=== PATIENT | male | born 1940 | race Caucasian/White ===

== ENCOUNTER → 2018-01-16 | Outpatient (CLI) | payer MEDICARE ==
[~2018-01-16] MED LIST: ADVAIR; ADVAIR 500-501 EACH INH; ADVAIR HFA115 MCG/21 INH; ALBUTEROL; ATROVENT15 ML; AZITHROMYCIN 2250 MG PO; CIPRO500 M1 PO; CIPRO500 MG PO; CIPROFLOXACIN500 M1 PO; CLARITIN10 MG PO; COMBIVENT INH; COMBIVENT INHALER; DOXYCYCLINE 10100 M1; DOXYCYCLINE 10100 MG PO; DOXYCYCLINE HY100 M3; DOXYCYCLINE HY100 MG; DOXYCYCLINE HY100 MG PO; DUONEB 2.5-0.5 M3 ML INH; FLAGYL500 MG PO; FLONASE 0.05%50 MCG NASAL; HYTRIN 5 M5 MG/1 CAP; LEVAQUIN 500 M500 M2 PO; LEVAQUIN 500 M500 MG PO; MEDROLDOSEPACK PO; MIRALAX17 GM PO; PREDNISONE 10 M10 MG PO; PREDNISONE 20 M20 MG PO; PREDNISONE10 MG PO; PREDNISONE50 MG; PREDNISONE50 MG PO; PROBIOTIC1 EAC2 PO; RAPAFLO4 MG; SENOKOT-S1 TA1 PO; STIOLTO RESPIMAT4 GM; VANTIN PO; VIBRAMYCIN 100100 M2 PO; VICODIN ES TAB1 EACH; ZPAK PO
== END ==
LOC: M.RAD 08:46
DX: J44.9 Chronic obstructive pulmonary disease, unspecified (principal); J70.3 Chronic drug-induced interstitial lung disorders; J84.10 Pulmonary fibrosis, unspecified; J98.4 Other disorders of lung

== ENCOUNTER 2018-05-04 21:01 | Emergency (ER) | payer MEDICARE ==
[~2018-05-04] VITALS: Ht 172.7 cm; Wt 58.1 kg
[~2018-05-04 21:01] MED LIST changes: -CIPRO500 M1 PO; -CLARITIN10 MG PO; -STIOLTO RESPIMAT4 GM; -ZPAK PO
[2018-05-04] MEDS ORDERED: STIOLTO RESPIMAT4 GM (21:22)
[2018-05-04 21:41] LABS: URINE BILIRUBIN NEGATIVE (Negative); URINE BLOOD NEGATIVE (Negative); URINE CLARITY CLEAR; URINE COLOR YELLOW; URINE GLUCOSE-RANDOM NEGATIVE (Negative); URINE KETONES NEGATIVE (Negative); URINE LEUKOCYTES-REFLEX NEGATIVE (Negative); URINE NITRITE-REFLEX NEGATIVE (Negative); URINE PROTEIN NEGATIVE (Negative); URINE UROBILINOGEN 0.2 E.U./dl (0.2-1.0)
[2018-05-04 21:48] LABS: ABSOLUTE BASOPHILS 0.1 thou/uL (0.0-0.2); ABSOLUTE EOSINOPHILS 0.3 thou/uL (0.0-0.7); ABSOLUTE LYMPHOCYTES 0.8 thou/uL (0.8-5.3); ABSOLUTE MONOCYTES 0.6 thou/uL (0.0-1.2); ABSOLUTE NEUTROPHILS 5.6 thou/uL (1.6-8.1); BASOPHILS 0.8 %; EOSINOPHILS 4.3 %; HEMATOCRIT 37.1 % (42.0-52.0); HEMOGLOBIN 12.4 gm/dL (14.0-18.0); LYMPHOCYTES 11.4 %; MCH 28.9 pg (26.0-34.0); MCHC 33.3 g/dL (28.0-37.0); MCV 86.8 fL (80.0-100.0); MONOCYTES 8.2 %; MPV 7.6 fl. (7.2-11.1); NUCLEATED RBCS 0 /100WBC; PLATELET COUNT* 203 thou/uL (150-400); POLYS 75.3 %; RBC 4.28 mil/uL (4.50-6.00); RDW-CV 14.5 % (10.5-14.5); WBC 7.4 thou/uL (4.0-11.0)
[2018-05-04 21:55] LABS: CALCIUM 7.8 mg/dL (8.5-10.1); CREATININE 1.2 mg/dL (0.6-1.3); POTASSIUM 3.3 mmol/L (3.5-5.1)
[2018-05-04 22:00] LABS: TOTAL BILIRUBIN 0.8 mg/dL (<0.1-1.0)
[2018-05-04] MEDS ORDERED: LEVAQUIN 500 M500 MG PO (22:32)
[2018-05-04 22:45] VITALS: BP 110/60
== END 2018-05-04 22:49 | disposition home or self-care (01) ==
LOC: M.ERS 21:01
PROVIDERS: Personal Emergency Response Attendant
DX: J18.9 Pneumonia, unspecified organism (principal); J44.9 Chronic obstructive pulmonary disease, unspecified; Z85.46 Personal history of malignant neoplasm of prostate; Z90.49 Acquired absence of other specified parts of digestive tract; Z87.891 Personal history of nicotine dependence

== ENCOUNTER 2018-05-25 10:48 | Emergency (ER) | payer MEDICARE ==
[~2018-05-25] VITALS: Ht 175.3 cm; Wt 59.0 kg
[~2018-05-25 10:48] MED LIST changes: +STIOLTO RESPIMAT4 GM
[2018-05-25 11:44] LABS: BE 0.9 mmol/L (-2 to +3); HCO3 25.5 mmol/L (22.0-26.0); PCO2 40.9 mmHg (35.0-45.0); PO2 76.7 mmHg (75.0-100.0); pH 7.413 (7.340-7.450)
[2018-05-25 11:45] LABS: HEMATOCRIT 40.4 % (42.0-52.0); HEMOGLOBIN 13.3 gm/dL (14.0-18.0); MCH 28.8 pg (26.0-34.0); MCHC 32.9 g/dL (28.0-37.0); MCV 87.5 fL (80.0-100.0); MPV 7.5 fl. (7.2-11.1); NUCLEATED RBCS 0 /100WBC; PLATELET COUNT* 331 thou/uL (150-400); RBC 4.61 mil/uL (4.50-6.00); RDW-CV 14.6 % (10.5-14.5); WBC 6.6 thou/uL (4.0-11.0)
[2018-05-25 11:48] LABS: ANION GAP 3 mmol/L (7-16); BUN 17 mg/dL (7-18); CALCIUM 8.9 mg/dL (8.5-10.1); CHLORIDE 102 mmol/L (98-107); CO2 32 mmol/L (21-32); CREATININE 1.1 mg/dL (0.6-1.3); GLUCOSE 91 mg/dL (70-99); POTASSIUM 4.2 mmol/L (3.5-5.1); SODIUM 137 mmol/L (136-145)
[2018-05-25 11:59] LABS: ALBUMIN 3.3 g/dL (3.4-5.0); ALKALINE PHOSPHATASE 60 U/L (46-116); MAGNESIUM 1.9 mg/dL (1.8-2.4); NT-PRO BRAIN NAT PEPTIDE 661 pg/mL (<300); SGOT 30 U/L (15-37); SGPT 24 U/L (30-65); TOTAL BILIRUBIN 0.6 mg/dL (<0.1-1.0); TROPONIN-I LEVEL <0.06 ng/mL (<0.06)
[2018-05-25 12:13] LABS: ABSOLUTE EOSINOPHILS 0.1 thou/uL (0.0-0.7); ABSOLUTE LYMPHOCYTES 0.6 thou/uL (0.8-5.3); ABSOLUTE MONOCYTES 0.1 thou/uL (0.0-1.2); ABSOLUTE NEUTROPHILS 5.8 thou/uL (1.6-8.1); PLATELET ESTIMATE ADEQUATE
[2018-05-25 12:18] LABS: URINE BILIRUBIN NEGATIVE (Negative); URINE BLOOD NEGATIVE (Negative); URINE CLARITY CLEAR; URINE COLOR YELLOW; URINE GLUCOSE-RANDOM NEGATIVE (Negative); URINE KETONES NEGATIVE (Negative); URINE LEUKOCYTES-REFLEX NEGATIVE (Negative); URINE NITRITE-REFLEX NEGATIVE (Negative); URINE PROTEIN NEGATIVE (Negative); URINE SPECIFIC GRAVITY 1.015 (1.005-1.030); URINE UROBILINOGEN 0.2 E.U./dl (0.2-1.0)
[2018-05-25] MEDS ORDERED: ZPAK PO (12:37)
[2018-05-25 13:00] VITALS: BP 128/77
--- NOTE | 2018-05-25 16:30 | EKG ---
[place] [address] ELECTROCARDIOGRAM REPORT Name: RBUCE SANDERS [id number] Admission: 05/25/18 Attend Phys: Discharge: 05/25/18 Date of : 44 Report #: [id number] THIS REPORT FOR: //name// [facility] ED Test Date: 2018-05-25 Test Time: 11:07:33 Pat Name: BRUCE SANDERS Department: Room: Gender: M Piping Blocker: Marilu COOK : 1940 Requested By: Brigette Negro Order Number: [id number] MD: David Pacheco Measurements Intervals [place] Rate: 53 P: 79 ME: 179 QRS: -63 QRSD: 124 T: 41 QT: 479 QTc: 450 Interpretive Statements Sinus rhythm RBBB and LAFB Compared to ECG 05/01/2017 20:08:34 Left anterior fascicular block now present Atrial premature complex(es) no longer present Myocardial infarct finding no longer present Electronically Signed On 05-25-2018 16:30:31 CDT by David Pacheco [email or web address] <ELECTRONICALLY SIGNED> By: David Pacheco MD, [facility] 05/25/18 1630 1107 1107 David Pacheco MD, [facility] /EPI
== END 2018-05-25 13:01 | disposition home or self-care (01) ==
LOC: M.ERS 10:48
PROVIDERS: Personal Emergency Response Attendant
DX: J44.1 Chronic obstructive pulmonary disease with (acute) exacerbation (principal); J40 Bronchitis, not specified as acute or chronic; Z79.899 Other long term (current) drug therapy; Z85.46 Personal history of malignant neoplasm of prostate

== ENCOUNTER → 2018-06-01 | Outpatient (CLI) | payer MEDICARE ==
[~2018-06-01] MED LIST changes: +CIPRO500 M1 PO; +CLARITIN10 MG PO; +ZPAK PO
== END ==
LOC: M.RAD 08:26
DX: M47.816 Spondylosis without myelopathy or radiculopathy, lumbar region (principal); M47.812 Spondylosis without myelopathy or radiculopathy, cervical region; M47.814 Spondylosis without myelopathy or radiculopathy, thoracic region; M48.04 Spinal stenosis, thoracic region; M48.061 Spinal stenosis, lumbar region without neurogenic claudication; M48.02 Spinal stenosis, cervical region; J44.9 Chronic obstructive pulmonary disease, unspecified; V89.2XXA Person injured in unspecified motor-vehicle accident, traffic, initial encounter

== ENCOUNTER 2018-07-27 05:32 | Emergency (ER) | payer MEDICARE ==
[~2018-07-27] VITALS: Ht 172.7 cm; Wt 59.0 kg
[~2018-07-27 05:32] MED LIST changes: -CIPRO500 M1 PO; -CLARITIN10 MG PO
[2018-07-27] MEDS ORDERED: PREDNISONE 20 M20 MG PO (05:56)
[2018-07-27] MEDS ORDERED: DOXYCYCLINE 10100 MG PO (05:58)
[2018-07-27 06:31] LABS: BE 0.3 mmol/L (-2 to +3); HCO3 25.1 mmol/L (22.0-26.0); PCO2 41.2 mmHg (35.0-45.0); PO2 73.9 mmHg (75.0-100.0); pH 7.403 (7.340-7.450)
[2018-07-27 06:34] LABS: HEMOGLOBIN 12.9 gm/dL (14.0-18.0)
[2018-07-27 06:36] LABS: ABSOLUTE EOSINOPHILS 0.3 thou/uL (0.0-0.7); ABSOLUTE MONOCYTES 0.4 thou/uL (0.0-1.2); ABSOLUTE NEUTROPHILS 3.7 thou/uL (1.6-8.1); BASOPHILS 0.6 %; EOSINOPHILS 5.9 %; HEMATOCRIT 38.9 % (42.0-52.0); LYMPHOCYTES 18.3 %; MCH 28.8 pg (26.0-34.0); MCHC 33.1 g/dL (28.0-37.0); MONOCYTES 6.8 %; MPV 7.7 fl. (7.2-11.1); NUCLEATED RBCS 0 /100WBC; PLATELET COUNT* 218 thou/uL (150-400); POLYS 68.4 %; RBC 4.47 mil/uL (4.50-6.00); RDW-CV 15.3 % (10.5-14.5); WBC 5.4 thou/uL (4.0-11.0)
[2018-07-27 06:46] LABS: ANION GAP 7 mmol/L (7-16); BUN 18 mg/dL (7-18); CALCIUM 9.1 mg/dL (8.5-10.1); CHLORIDE 104 mmol/L (98-107); CO2 29 mmol/L (21-32); GLUCOSE 84 mg/dL (70-99); SODIUM 140 mmol/L (136-145)
[2018-07-27 06:58] LABS: ALBUMIN 3.3 g/dL (3.4-5.0); ALKALINE PHOSPHATASE 78 U/L (46-116); SGOT 39 U/L (15-37); SGPT 24 U/L (30-65); TOTAL BILIRUBIN 0.7 mg/dL (<0.1-1.0); TOTAL PROTEIN 6.7 g/dL (6.4-8.2); TROPONIN-I LEVEL <0.06 ng/mL (<0.06)
[2018-07-27 06:59] LABS: POTASSIUM 4.4 mmol/L (3.5-5.1)
[2018-07-27] MEDS ORDERED: MEDROLDOSEPACK PO (08:02)
[2018-07-27] MEDS ORDERED: CIPRO500 M1 PO (08:02)
[2018-07-27 08:08] VITALS: BP 146/77
--- NOTE | 2018-07-27 13:52 | EKG ---
[place] [address] ELECTROCARDIOGRAM REPORT Name: BRUCE SANDERS [id number] Admission: 07/27/18 Attend Phys: Discharge: 07/27/18 Date of : 44 Report #: [id number] THIS REPORT FOR: //name// [facility] ED Test Date: 2018-07-27 Test Time: 05:46:24 Pat Name: BRUCE SANDERS Department: Room: Gender: M Specialist Managers: Tayo ORTIZ : 1940 Requested By: Brigette Negro Order Number: [id number] MD: Simone Valente Measurements Intervals [place] Rate: 52 P: 78 [place]: 173 QRS: -81 QRSD: 123 T: 50 QT: 469 QTc: 437 Interpretive Statements Sinus rhythm RBBB and LAFB Compared to ECG 05/25/2018 11:07:33 No significant changes Electronically Signed On 07-27-2018 13:52:33 PEDIATRIC PSYCHOLOGIST by Simone Valente [email or web address] <ELECTRONICALLY SIGNED> By: Simone Valente MD, [facility] 07/27/18 1352 0546 0546 Simone Valente MD, FACC /EPI
== END 2018-07-27 08:09 | disposition home or self-care (01) ==
LOC: M.ERS 05:32
PROVIDERS: Personal Emergency Response Attendant
DX: J44.1 Chronic obstructive pulmonary disease with (acute) exacerbation (principal); Z85.46 Personal history of malignant neoplasm of prostate; Z90.49 Acquired absence of other specified parts of digestive tract; Z87.891 Personal history of nicotine dependence

== ENCOUNTER 2018-08-01 16:13 | Emergency (ER) | payer MEDICARE ==
[~2018-08-01] VITALS: Ht 172.7 cm; Wt 56.7 kg
[~2018-08-01 16:13] MED LIST changes: +CIPRO500 M1 PO
[2018-08-01] MEDS ORDERED: DOXYCYCLINE 10100 MG PO (16:31)
[2018-08-01] MEDS ORDERED: PREDNISONE50 MG PO (16:31)
[2018-08-01] MEDS ORDERED: AZITHROMYCIN 2250 MG PO (16:32)
[2018-08-01] MEDS ORDERED: LEVAQUIN 500 M500 M2 PO (16:32)
[2018-08-01 17:20] LABS: ABSOLUTE EOSINOPHILS 0.2 thou/uL (0.0-0.7); ABSOLUTE LYMPHOCYTES 1.5 thou/uL (0.8-5.3); ABSOLUTE MONOCYTES 0.4 thou/uL (0.0-1.2); ABSOLUTE NEUTROPHILS 4.4 thou/uL (1.6-8.1); BASOPHILS 0.4 %; EOSINOPHILS 2.8 %; HEMATOCRIT 37.8 % (42.0-52.0); HEMOGLOBIN 12.5 gm/dL (14.0-18.0); LYMPHOCYTES 22.4 %; MCH 29.1 pg (26.0-34.0); MCHC 33.2 g/dL (28.0-37.0); MCV 87.6 fL (80.0-100.0); MONOCYTES 6.8 %; MPV 7.3 fl. (7.2-11.1); NUCLEATED RBCS 0 /100WBC; PLATELET COUNT* 239 thou/uL (150-400); POLYS 67.6 %; RBC 4.32 mil/uL (4.50-6.00); RDW-CV 14.9 % (10.5-14.5); WBC 6.5 thou/uL (4.0-11.0)
[2018-08-01 17:41] LABS: ANION GAP 6 mmol/L (7-16); BUN 19 mg/dL (7-18); CALCIUM 8.4 mg/dL (8.5-10.1); CHLORIDE 106 mmol/L (98-107); CO2 31 mmol/L (21-32); CREATININE 1.1 mg/dL (0.6-1.3); GLUCOSE 90 mg/dL (70-99); POTASSIUM 4.1 mmol/L (3.5-5.1); SODIUM 143 mmol/L (136-145)
[2018-08-01 17:45] LABS: ALBUMIN 3.1 g/dL (3.4-5.0); ALKALINE PHOSPHATASE 76 U/L (46-116); NT-PRO BRAIN NAT PEPTIDE 248 pg/mL (<300); SGOT 18 U/L (15-37); SGPT 23 U/L (30-65); TOTAL BILIRUBIN 0.6 mg/dL (<0.1-1.0); TROPONIN-I LEVEL <0.06 ng/mL (<0.06)
[2018-08-01] MEDS ORDERED: CLARITIN10 MG PO (18:09)
[2018-08-01 18:18] VITALS: BP 135/75
--- NOTE | 2018-08-02 11:31 | EKG ---
[place] [address] ELECTROCARDIOGRAM REPORT Name: ARIELNAYELICHARIBRUCE [facility] [id number] Admission: 08/01/18 Attend Phys: Discharge: 08/01/18 Date of : 44 Report #: [id number] THIS REPORT FOR: //name// [facility] ED Test Date: 2018-08-01 Test Time: 16:38:03 Pat Name: BRUCE SANDERS Department: Room: Gender: M Airbrush Painter: Laurel GROSS : 1940 Requested By: Tram Vieira Order Number: [id number] MD: Simone Valente Measurements Intervals [place] Rate: 63 P: 86 [place]: 173 QRS: -47 QRSD: 120 T: 48 QT: 422 QTc: 433 Interpretive Statements Sinus rhythm Consider left atrial enlargement Incomplete RBBB and LAFB Compared to ECG 07/27/2018 05:46:24 rate increased Electronically Signed On 08-02-2018 11:31:02 PASTEURIZING MACHINE OPERATOR by Simone Valente [email or web address] <ELECTRONICALLY SIGNED> By: Simone Valente MD, [facility] 08/02/18 1131 1638 163 Simone Valente MD, [facility] /EPI
== END 2018-08-01 18:19 | disposition home or self-care (01) ==
LOC: M.ERS 16:13
PROVIDERS: Nurse Practitioner Family
DX: J44.1 Chronic obstructive pulmonary disease with (acute) exacerbation (principal); Z85.46 Personal history of malignant neoplasm of prostate; Z90.49 Acquired absence of other specified parts of digestive tract; Z87.891 Personal history of nicotine dependence

== ENCOUNTER 2018-08-26 11:12 | Emergency (ER) | payer MEDICARE ==
[~2018-08-26] VITALS: Ht 172.7 cm; Wt 56.7 kg
[~2018-08-26 11:12] MED LIST changes: +CLARITIN10 MG PO
[2018-08-26 11:44] LABS: MCHC 33.3 g/dL (28.0-37.0); NUCLEATED RBCS 0 /100WBC
[2018-08-26 11:46] LABS: ABSOLUTE EOSINOPHILS 0.1 thou/uL (0.0-0.7); ABSOLUTE LYMPHOCYTES 0.6 thou/uL (0.8-5.3); ABSOLUTE MONOCYTES 0.3 thou/uL (0.0-1.2); ABSOLUTE NEUTROPHILS 3.5 thou/uL (1.6-8.1); BASOPHILS 0.4 %; EOSINOPHILS 3.1 %; HEMATOCRIT 36.7 % (42.0-52.0); HEMOGLOBIN 12.2 gm/dL (14.0-18.0); LYMPHOCYTES 13.6 %; MONOCYTES 5.7 %; MPV 7.5 fl. (7.2-11.1); PLATELET COUNT* 208 thou/uL (150-400); POLYS 77.2 %; RBC 4.22 mil/uL (4.50-6.00); WBC 4.6 thou/uL (4.0-11.0)
[2018-08-26 11:56] LABS: ANION GAP 6 mmol/L (7-16); BUN 14 mg/dL (7-18); CALCIUM 8.8 mg/dL (8.5-10.1); CHLORIDE 104 mmol/L (98-107); CO2 31 mmol/L (21-32); CREATININE 1.1 mg/dL (0.6-1.3); GLUCOSE 129 mg/dL (70-99); POTASSIUM 3.6 mmol/L (3.5-5.1); SODIUM 141 mmol/L (136-145)
[2018-08-26 12:07] LABS: ALBUMIN 3.3 g/dL (3.4-5.0); ALKALINE PHOSPHATASE 80 U/L (46-116); NT-PRO BRAIN NAT PEPTIDE 361 pg/mL (<300); SGOT 22 U/L (15-37); SGPT 22 U/L (30-65); TOTAL BILIRUBIN 0.7 mg/dL (<0.1-1.0); TOTAL PROTEIN 6.4 g/dL (6.4-8.2); TROPONIN-I LEVEL <0.06 ng/mL (<0.06)
[2018-08-26] MEDS ORDERED: PREDNISONE 20 M20 M1 PO (12:50)
[2018-08-26 13:04] VITALS: BP 118/67
--- NOTE | 2018-08-28 10:22 | EKG ---
[place] [address] ELECTROCARDIOGRAM REPORT Name: BRUCE SANDERS [facility] [id number] Admission: 08/26/18 Attend Phys: Discharge: 08/26/18 Date of : 44 Report #: [id number] THIS REPORT FOR: //name// [facility] ED Test Date: 2018-08-26 Test Time: 11:46:15 Pat Name: BRUCE SANDERS Department: Room: Gender: M Blind Eyeletter: Gaurang PARSONS : 1940 Requested By: Jessica Aguilar Order Number: [id number] MD: Simone Valente Measurements Intervals [place] Rate: 68 P: 86 [place]: 181 QRS: -70 QRSD: 124 T: 59 QT: 434 QTc: 462 Interpretive Statements Sinus rhythm RBBB and LAFB Borderline ST elevation, lateral leads Compared to ECG 08/01/2018 16:38:03 no change Electronically Signed On 08-28-2018 10:22:22 FURNITURE UPHOLSTERER APPRENTICE by Simone Valente [email or web address] <ELECTRONICALLY SIGNED> By: Simone Valente MD, [facility] 08/28/18 1022 1146 1146 Simone Valente MD, [facility] /EPI
== END 2018-08-26 13:05 | disposition home or self-care (01) ==
LOC: M.ERS 11:12
PROVIDERS: Nurse Practitioner Family
DX: J44.9 Chronic obstructive pulmonary disease, unspecified (principal); Z87.891 Personal history of nicotine dependence; Z85.46 Personal history of malignant neoplasm of prostate; Z90.49 Acquired absence of other specified parts of digestive tract

== ENCOUNTER 2018-09-04 00:08 | Inpatient (IN) | payer MEDICARE ==
[~2018-09-04] VITALS: Ht 172.7 cm; Wt 55.3 kg
--- NOTE | ~2018-09-04 | CON ---
[facility] [address] [place] [address] CONSULTATION Name: BRUCE SANDERS Room: [address] IN M.R.#: [id number] Admission: 09/04/18 Attend Phys: Gaurang Morgan Discharge: Date of : 44 Report #: [id number] THIS REPORT FOR: //name// CC: Neil Lockett DATE OF SERVICE: 09/04/2018 HISTORY OF PRESENT ILLNESS: The patient is a pleasant 78-year-old gentleman, with past medical history significant for small bowel obstruction, who is presenting with abdominal pain, nausea and vomiting. The patient reports the symptoms began about 2 days ago consisting of mid abdominal pain, nausea and vomiting and inability to pass stool. The patient reports the symptoms are similar to the ones he had before when he had bowel obstruction. The patient reports the pain is located in the mid abdomen. It is cramping in nature and has no particular aggravating or alleviating factors. The pain has improved since the NG tube was placed in the hospital and decompression was made. The patient did not have any bowel movements for the last couple of days, but he just had one this a.m. The patient reports significant improvement in symptoms since his bowel movement. The patient denies having any hematemesis, hematochezia or weight loss. PAST MEDICAL HISTORY: The patient has a past history of COPD and diverticulitis. PAST SURGICAL HISTORY: The patient has history of cholecystectomy and hernia repair. SOCIAL HISTORY: The patient has a 26-sbep-zuos smoking history, but has quit smoking. He reports taking alcohol occasionally about once a month and denies recreational drug use. FAMILY HISTORY: There is no family history of colorectal cancer. PHYSICAL EXAMINATION: VITAL SIGNS: Temperature 36.2, pulse rate 82, respirations 16, blood pressure 148/84, pulse ox 95% on room air. GENERAL: The patient is alert, awake, oriented x 3. HEENT: Pupils are equal, round, reactive to light and accommodation. Mucous membranes are moist. NECK: There is no congestion. LUNGS: Clear to auscultation bilaterally. CARDIOVASCULAR: Rate and rhythm regular, S1, S2 present. ABDOMEN: Soft. There is no tenderness. Bowel sounds appear to be hyperactive. There is no guarding or rigidity. EXTREMITIES: Warm, well perfused. [place] [address] CONSULTATION Name: BRUCE SANDERS Room: [address]#: [id number] Admission: 09/04/18 Attend Phys: Gaurang Morgan Discharge: Date of : 44 Report #: [id number] LABORATORY DATA: Hemoglobin 12.5, hematocrit 37.4, platelet count 252, WBC count 10.8. Sodium 141, potassium 3.6, chloride 102, bicarbonate 32, BUN 22, creatinine 1.1. AST 19, ALT 23, alkaline phosphatase 75. IMAGING: Abdomen and pelvis CT performed on 09/04/2018, moderate amount of retained stool throughout the colon. There is mild swelling of the central mesenteric vascularity; however, this is similar to prior study. All of this may be seen with intermittent volvulus, but no definite evidence of complete bowel obstruction seen at this time. No free air or ascites. Close clinical followup and radiographic followup is recommended. Previous cholecystectomy. ASSESSMENT AND PLAN: This is a pleasant 78-year-old male, with past medical history significant for chronic obstructive pulmonary disease and prior history of bowel obstruction, presenting with symptoms of abdominal pain, nausea, vomiting and lack of passage of stool. The patient appears to have had a bowel obstruction that has spontaneously resolved after initiation of nasogastric decompression. I would recommend placing the patient on clear liquid diet and we will advance diet as tolerated. Call with any questions. By: [id number] Flores MD /nt
[~2018-09-04 00:08] MED LIST changes: +PREDNISONE 20 M20 M1 PO
[2018-09-04 00:09] VITALS: BP 163/77
[2018-09-04 00:34] LABS: HEMATOCRIT 37.4 % (42.0-52.0); HEMOGLOBIN 12.5 gm/dL (14.0-18.0); MCH 29.2 pg (26.0-34.0); MCHC 33.4 g/dL (28.0-37.0); MCV 87.4 fL (80.0-100.0); MPV 7.6 fl. (7.2-11.1); NUCLEATED RBCS 0 /100WBC; PLATELET COUNT* 252 thou/uL (150-400); RBC 4.28 mil/uL (4.50-6.00); RDW-CV 14.2 % (10.5-14.5); WBC 10.8 thou/uL (4.0-11.0)
[2018-09-04 00:54] LABS: ANION GAP 7 mmol/L (7-16); BUN 22 mg/dL (7-18); CALCIUM 8.6 mg/dL (8.5-10.1); CHLORIDE 102 mmol/L (98-107); CO2 32 mmol/L (21-32); CREATININE 1.1 mg/dL (0.6-1.3); GLUCOSE 84 mg/dL (70-99); POTASSIUM 3.6 mmol/L (3.5-5.1); SODIUM 141 mmol/L (136-145)
[2018-09-04 01:01] LABS: ALBUMIN 3.2 g/dL (3.4-5.0); ALKALINE PHOSPHATASE 75 U/L (46-116); LIPASE 90 U/L (73-393); SGOT 19 U/L (15-37); SGPT 23 U/L (30-65); TOTAL BILIRUBIN 0.6 mg/dL (<0.1-1.0); TOTAL PROTEIN 6.3 g/dL (6.4-8.2); TROPONIN-I LEVEL <0.06 ng/mL (<0.06)
[2018-09-04 01:58] LABS: ABSOLUTE LYMPHOCYTES 0.9 thou/uL (0.8-5.3); ABSOLUTE MONOCYTES 0.3 thou/uL (0.0-1.2); ABSOLUTE NEUTROPHILS 9.6 thou/uL (1.6-8.1); ANISOCYTOSIS 1+; PLATELET ESTIMATE ADEQUATE
[2018-09-04 01:59] LABS: POIKILOCYTOSIS 1+; TOXIC GRANULATION 1+
[2018-09-04 02:31] LABS: URINE BILIRUBIN NEGATIVE (Negative); URINE BLOOD NEGATIVE (Negative); URINE CLARITY CLEAR; URINE COLOR YELLOW; URINE GLUCOSE-RANDOM NEGATIVE (Negative); URINE KETONES NEGATIVE (Negative); URINE LEUKOCYTES-REFLEX NEGATIVE (Negative); URINE NITRITE-REFLEX NEGATIVE (Negative); URINE PROTEIN NEGATIVE (Negative); URINE SPECIFIC GRAVITY <= 1.005 (1.005-1.030); URINE UROBILINOGEN 0.2 E.U./dl (0.2-1.0)
[2018-09-04 04:10] VITALS: BP 127/75
[2018-09-04 04:15] VITALS: BP 150/87
--- NOTE | 2018-09-04 05:23 | NUR ---
PATIENT ARRIVED TO ROOM ALERT AND ORIENTED. ORIENTED TO ROOM AND BED CONTROL. DENIES PAIN OR NAUSEA AT THIS TIME. NPO AT THIS TIME. ASSESSMENT CHARTED.
[2018-09-04 09:40] VITALS: BP 148/84
--- NOTE | 2018-09-04 11:10 | EKG ---
[place] [address] ELECTROCARDIOGRAM REPORT Name: BRUCE SANDERS Room: [address] ADM IN M.R.#: [id number] Admission: 09/04/18 Attend Phys: Gaurang Morgan Discharge: Date of : 44 Report #: [id number] THIS REPORT FOR: //name// [facility] ED Test Date: 2018-09-04 Test Time: 00:41:51 Pat Name: BRUCE SANDERS Department: Room: [facility] Gender: M Senior Ruby Developer: MAKAYLA : 1940 Requested By: Brigette Negro Order Number: [id number] MD: Herberth Mac Measurements Intervals [place] Rate: 57 P: 88 MT: 170 QRS: -55 QRSD: 123 T: 54 QT: 446 QTc: 435 Interpretive Statements Sinus rhythm Atrial premature complexes RBBB and LAFB Compared to ECG 08/26/2018 11:46:15 Atrial premature complex(es) now present ST (T wave) deviation no longer present Electronically Signed On 09-04-2018 11:10:39 ENROBING MACHINE OPERATOR by Herberth Mac [email or web address] <ELECTRONICALLY SIGNED> By: Herberth Mac MD, [facility]ACC 09/04/18 1110 004 004 Herberth Mac MD, FAC /EPI
[2018-09-04 16:00] VITALS: BP 156/80
--- NOTE | 2018-09-04 17:01 | NUR ---
PT UP IN ROOM WITH STEADY GAIT. IVF INFUSING. LARGE BM THIS AM. VOIDING PER URINAL.
[2018-09-04 19:50] VITALS: BP 133/69
--- NOTE | 2018-09-04 21:16 | NUR ---
RECIEVED REPORT AND ASSUMED CARE OF PT AT 1950. PT DENIED PAIN OR DISCOMFORT IN ABDOMEN. DISCUSSED RESULTS OF TESTS. VITAL SIGNS WITHIN NORMAL LIMITS. CALL LIGHT IN REACH, PT DEMONSTRATES PROPER USE.
[2018-09-05 04:16] LABS: HEMOGLOBIN 11.9 gm/dL (14.0-18.0); MCH 29.9 pg (26.0-34.0); MCV 88.1 fL (80.0-100.0); MPV 7.6 fl. (7.2-11.1); RBC 3.98 mil/uL (4.50-6.00); RDW-CV 14.1 % (10.5-14.5); WBC 7.4 thou/uL (4.0-11.0)
[2018-09-05 04:24] LABS: ALBUMIN 2.7 g/dL (3.4-5.0); CALCIUM 8.1 mg/dL (8.5-10.1); CREATININE 1.1 mg/dL (0.6-1.3); MAGNESIUM 2.1 mg/dL (1.8-2.4); TOTAL BILIRUBIN 0.8 mg/dL (<0.1-1.0); TOTAL PROTEIN 5.5 g/dL (6.4-8.2)
[2018-09-05 07:40] VITALS: BP 128/62
[2018-09-05] MEDS ORDERED: FIBERCON CHEWA625 MG PO (09:08)
[2018-09-05] MEDS ORDERED: MIRALAX17 GM PO (09:08)
[2018-09-05 09:53] VITALS: BP 128/62
[2018-09-05] MEDS ORDERED: MEDROL DOSPAK21 TA1 PO (13:16)
[2018-09-05] MEDS ORDERED: DOXYCYCLINE 10100 MG PO (13:16)
--- NOTE | 2018-09-05 14:36 | NUR ---
PATIENT DISCHARGED TO HOME AT THIS TIME. IV REMOVED. SCRIPTS FOR DOXYCYCLINE AND MEDROL DOSE PACK CALLED INTO PATIENTS PHARMACY. PATIENT INSTRUCTED TO GET FIBERCON AND MIRILAX OVER THE COUNTER. PATIENT VERBALIZES UNDERSTANDING OF DC INSTRUCTIONS.
== END 2018-09-05 14:00 | disposition home or self-care (01) | DRG 389 ==
LOC: M.ERS 00:08 → M.TBA-ER 02:39 → M.ORTHSURG 02:39
PROVIDERS: Internal Medicine; Personal Emergency Response Attendant; ADMIT Internal Medicine
DX: K56.600 Partial intestinal obstruction, unspecified as to cause (principal); E44.1 Mild protein-calorie malnutrition; J44.9 Chronic obstructive pulmonary disease, unspecified; K56.2 Volvulus; K59.09 Other constipation; Z90.49 Acquired absence of other specified parts of digestive tract; Z92.3 Personal history of irradiation; Z85.46 Personal history of malignant neoplasm of prostate; Z87.891 Personal history of nicotine dependence

== ENCOUNTER 2018-09-18 10:57 | Emergency (ER) | payer MEDICARE ==
[~2018-09-18] VITALS: Ht 172.7 cm; Wt 56.2 kg
[~2018-09-18 10:57] MED LIST changes: +FIBERCON CHEWA625 MG PO; +MEDROL DOSPAK21 TA1 PO
[2018-09-18] MEDS ORDERED: VENTOLIN HFA 1818 GM INH (11:06)
[2018-09-18 11:36] LABS: ABSOLUTE EOSINOPHILS 0.3 thou/uL (0.0-0.7); ABSOLUTE LYMPHOCYTES 0.6 thou/uL (0.8-5.3); ABSOLUTE MONOCYTES 0.4 thou/uL (0.0-1.2); ABSOLUTE NEUTROPHILS 3.3 thou/uL (1.6-8.1); BASOPHILS 0.6 %; EOSINOPHILS 6.8 %; HEMATOCRIT 37.4 % (42.0-52.0); HEMOGLOBIN 12.6 gm/dL (14.0-18.0); LYMPHOCYTES 13.3 %; MCH 29.8 pg (26.0-34.0); MCHC 33.9 g/dL (28.0-37.0); MCV 87.9 fL (80.0-100.0); MONOCYTES 8.8 %; MPV 7.6 fl. (7.2-11.1); NUCLEATED RBCS 0 /100WBC; PLATELET COUNT* 177 thou/uL (150-400); POLYS 70.5 %; RBC 4.25 mil/uL (4.50-6.00); WBC 4.7 thou/uL (4.0-11.0)
[2018-09-18 11:51] LABS: ANION GAP 8 mmol/L (7-16); BUN 16 mg/dL (7-18); CALCIUM 8.6 mg/dL (8.5-10.1); CHLORIDE 104 mmol/L (98-107); CO2 30 mmol/L (21-32); CREATININE 1.2 mg/dL (0.6-1.3); GLUCOSE 99 mg/dL (70-99); POTASSIUM 4.1 mmol/L (3.5-5.1); SODIUM 142 mmol/L (136-145)
[2018-09-18 11:58] LABS: ALBUMIN 2.9 g/dL (3.4-5.0); ALKALINE PHOSPHATASE 90 U/L (46-116); LIPASE 69 U/L (73-393); SGOT 23 U/L (15-37); SGPT 22 U/L (30-65); TOTAL BILIRUBIN 0.5 mg/dL (<0.1-1.0); TOTAL PROTEIN 6.1 g/dL (6.4-8.2); TROPONIN-I LEVEL <0.06 ng/mL (<0.06)
[2018-09-18 12:05] LABS: MAGNESIUM 1.7 mg/dL (1.8-2.4)
[2018-09-18] MEDS ORDERED: MUCINEX600 MG PO (12:37)
[2018-09-18] MEDS ORDERED: PREDNISONE50 MG PO (12:37)
[2018-09-18 13:16] VITALS: BP 112/60
--- NOTE | 2018-09-18 14:14 | EKG ---
[place] [address] ELECTROCARDIOGRAM REPORT Name: BECKY SANDERSRIO [id number] Admission: 09/18/18 Attend Phys: Discharge: 09/18/18 Date of : 44 Report #: [id number] THIS REPORT FOR: //name// [facility] ED Test Date: 2018-09-18 Test Time: 11:42:00 Pat Name: BRUCE SANDERS Department: Room: Gender: M Retail Sales Associate: ISSA : 1940 Requested By: Olegario Choi Order Number: [id number] MD: David Pacheco Measurements Intervals [place] Rate: 66 P: 74 [place]: 178 QRS: -41 QRSD: 122 T: 39 QT: 423 QTc: 444 Interpretive Statements Sinus rhythm Consider left atrial enlargement RBBB and LAFB Compared to ECG 09/04/2018 00:41:51 Atrial premature complex(es) no longer present Electronically Signed On 09-18-2018 14:14:36 LOG HAULER by David Pacheco [email or web address] <ELECTRONICALLY SIGNED> By: David Pacheco MD, [facility] 09/18/18 1414 1142 1142 David Pacheco MD, [facility] /EPI
== END 2018-09-18 13:17 | disposition home or self-care (01) ==
LOC: M.ERS 10:57
PROVIDERS: Emergency Medicine Emergency Medical Services
DX: J40 Bronchitis, not specified as acute or chronic (principal); Z87.891 Personal history of nicotine dependence; J44.9 Chronic obstructive pulmonary disease, unspecified; Z85.46 Personal history of malignant neoplasm of prostate; Z90.49 Acquired absence of other specified parts of digestive tract

== ENCOUNTER 2018-09-27 20:44 | Inpatient (IN) | payer OTHER ==
[~2018-09-27] VITALS: Ht 172.7 cm; Wt 54.9 kg
[~2018-09-27 20:44] MED LIST changes: +MUCINEX600 MG PO; +VENTOLIN HFA 1818 GM INH
[2018-09-27 21:12] VITALS: BP 125/71
[2018-09-27 21:37] LABS: URINE BILIRUBIN NEGATIVE (Negative); URINE BLOOD NEGATIVE (Negative); URINE CLARITY CLEAR; URINE COLOR YELLOW; URINE GLUCOSE-RANDOM NEGATIVE (Negative); URINE KETONES NEGATIVE (Negative); URINE LEUKOCYTES-REFLEX NEGATIVE (Negative); URINE NITRITE-REFLEX NEGATIVE (Negative); URINE PROTEIN NEGATIVE (Negative); URINE UROBILINOGEN 0.2 E.U./dl (0.2-1.0)
[2018-09-27 21:52] LABS: ABSOLUTE EOSINOPHILS 0.5 thou/uL (0.0-0.7); ABSOLUTE LYMPHOCYTES 0.7 thou/uL (0.8-5.3); ABSOLUTE MONOCYTES 0.6 thou/uL (0.0-1.2); ABSOLUTE NEUTROPHILS 5.8 thou/uL (1.6-8.1); BASOPHILS 0.5 %; HEMATOCRIT 35.7 % (42.0-52.0); LYMPHOCYTES 9.4 %; MCH 29.5 pg (26.0-34.0); MCHC 33.5 g/dL (28.0-37.0); MCV 87.8 fL (80.0-100.0); MONOCYTES 7.5 %; MPV 7.6 fl. (7.2-11.1); NUCLEATED RBCS 0 /100WBC; PLATELET COUNT* 185 thou/uL (150-400); POLYS 76.6 %; RBC 4.07 mil/uL (4.50-6.00); RDW-CV 14.2 % (10.5-14.5); WBC 7.6 thou/uL (4.0-11.0)
[2018-09-27 22:01] LABS: ANION GAP 7 mmol/L (7-16); BUN 24 mg/dL (7-18); CALCIUM 8.3 mg/dL (8.5-10.1); CHLORIDE 104 mmol/L (98-107); CO2 29 mmol/L (21-32); CREATININE 1.2 mg/dL (0.6-1.3); GLUCOSE 140 mg/dL (70-99); POTASSIUM 3.6 mmol/L (3.5-5.1); SODIUM 140 mmol/L (136-145)
[2018-09-27 22:02] LABS: INR 1.1; PROTIME 10.9 Seconds (9.20-11.50)
[2018-09-27 22:07] LABS: ALBUMIN 2.6 g/dL (3.4-5.0); ALKALINE PHOSPHATASE 82 U/L (46-116); LIPASE 100 U/L (73-393); SGOT 17 U/L (15-37); SGPT 21 U/L (30-65); TOTAL BILIRUBIN 0.4 mg/dL (<0.1-1.0); TOTAL PROTEIN 5.5 g/dL (6.4-8.2); TROPONIN-I LEVEL <0.06 ng/mL (<0.06)
[2018-09-28] VITALS: BP 126/76
[2018-09-28 00:15] VITALS: BP 132/80
--- NOTE | 2018-09-28 01:23 | NUR ---
PT ADMITTED TO ROOM 115 AT 0015. PT PRESENTED TO ED AFTER HAVING DIARRHEA SINCE TUESDAY. PT STATES HE ATE CHICKEN WINGS AND EGG ROLLS FROM A GAS STATION IN [place]. HE REPORTS FEELING SICK SOON AFTER HE FINISHED EATING. PT STATES HE CAME TO THE ED DUE TO FEELING EXTREMELY WEAK. PT DENIES VOMITING, STATES HE NEVER THROWS UP. PT REPORTS FEELING BETTER SINCE TREATMENT IN ED. CALL LIGHT IN REACH, PT USING APPROPRIATELY.
[2018-09-28 06:00] VITALS: BP 128/71
[2018-09-28 08:00] VITALS: BP 122/66
[2018-09-28] MEDS ORDERED: COMBIVENT INH (08:42)
[2018-09-28] MEDS ORDERED: FIBERCON CHEWA625 MG PO (08:42)
[2018-09-28] MEDS ORDERED: MIRALAX17 GM PO (08:42)
[2018-09-28] MEDS ORDERED: PREDNISONE50 MG PO (08:42)
[2018-09-28] MEDS ORDERED: MUCINEX600 MG PO (08:42)
[2018-09-28 16:03] VITALS: BP 110/64; BP 118/64
--- NOTE | 2018-09-28 16:36 | EKG ---
[place] [address] ELECTROCARDIOGRAM REPORT Name: BRUCE SANDERS Room: [address] ADM IN M.R.#: [id number] Admission: 09/27/18 Attend Phys: Jose Juan Martinez MD Discharge: Date of : 44 Report #: [id number] THIS REPORT FOR: //name// [facility] ED Test Date: 2018-09-27 Test Time: 22:02:45 Pat Name: BRUCE SANDERS Department: Room: [facility] Gender: Machine Lay Out Worker: BABAR : 1940 Requested By: Jin Ware Order Number: [id number] MD: David Pacheco Measurements Intervals [place] Rate: 73 P: 87 [place]: 169 QRS: -71 QRSD: 127 T: 59 QT: 423 QTc: 467 Interpretive Statements Sinus arrhythmia RBBB and LAFB Electronically Signed On 09-28-2018 16:36:11 LITIGATION ASSISTANT by David Pacheco [email or web address] <ELECTRONICALLY SIGNED> By: David Pacheco MD, [facility] 09/28/18 1636 2202 01 David Pacheco MD, FACC /EPI
[2018-09-28 19:15] VITALS: BP 144/89
[2018-09-28 21:13] LABS: GLYCOHEMOGLOBIN (HGB A1C) 5.8 % (4.8-5.6)
[2018-09-29] VITALS (7 sets, daily range): BP systolic 116–146; BP diastolic 69–77
[2018-09-29 04:02] LABS: HEMATOCRIT 37.6 % (42.0-52.0); HEMOGLOBIN 12.4 gm/dL (14.0-18.0); MCH 29.3 pg (26.0-34.0); MCV 88.6 fL (80.0-100.0); MPV 7.9 fl. (7.2-11.1); RBC 4.25 mil/uL (4.50-6.00); RDW-CV 14.5 % (10.5-14.5); WBC 11.5 thou/uL (4.0-11.0)
[2018-09-29 04:12] LABS: ALBUMIN 2.8 g/dL (3.4-5.0); CALCIUM 8.6 mg/dL (8.5-10.1); POTASSIUM 4.4 mmol/L (3.5-5.1); TOTAL BILIRUBIN 0.4 mg/dL (<0.1-1.0); TOTAL PROTEIN 6.1 g/dL (6.4-8.2)
--- NOTE | 2018-09-29 06:43 | NUR ---
PT CONTINUED ON IV FLUIDS DURING SHIFT FOR TREATMENT OF DEHYDRATION AND DIARRHEA. PT N LONGER HAVING DIARRHEA. PT RECIEVING MIRALAX AND DUCOLAX TAB FOR CONSTIPATION. PT PASSING GAS DURING SHIFT. NO STOOLS NOTED. PT'S RENAL FUNCTION STILL ELEVATED. PT DRINKING ALOT OF WATER AND ALSO VOIDING LARGE AMOUNTS OF CLEAR YELLOW URINE. VITAL SIGNS WITHIN NORMAL LIMITS, WILL CONTINUE TO MONITOR.
[2018-09-29] MEDS ORDERED: TRAMADOL 50 MG50 MG PO (09:34)
--- NOTE | 2018-09-29 17:31 | NUR ---
LATE ENTRY-0950 DISCUSSED DC INSTRUCTIONS, VERBALIZED UNDERSTANDING. GIVEN PAPER SCRIPTS AND COPIES OF ALL INSTRUCTIONS. TAKEN TO PRIVATE VEHICLE IN WHEELCHAIR, WITH ALL PERSONAL BELONGINGS.
== END 2018-09-29 10:03 | disposition home or self-care (01) | DRG 191 ==
LOC: M.ERS 20:44 → M.TBA-ER 23:26 → M.ORTHSURG 23:26
PROVIDERS: Family Medicine; Internal Medicine; ADMIT Family Medicine
DX: J44.1 Chronic obstructive pulmonary disease with (acute) exacerbation (principal); E44.0 Moderate protein-calorie malnutrition; Z68.1 Body mass index [BMI] 19.9 or less, adult; K59.00 Constipation, unspecified; E86.0 Dehydration; Z85.46 Personal history of malignant neoplasm of prostate; Z92.3 Personal history of irradiation; Z90.49 Acquired absence of other specified parts of digestive tract; Z87.891 Personal history of nicotine dependence; Z83.6 Family history of other diseases of the respiratory system; Z79.899 Other long term (current) drug therapy

== ENCOUNTER 2018-10-05 18:36 | Emergency (ER) | payer OTHER ==
[~2018-10-05] VITALS: Ht 172.7 cm; Wt 55.3 kg
[~2018-10-05 18:36] MED LIST changes: +TRAMADOL 50 MG50 MG PO
[2018-10-05 18:46] LABS: URINE BILIRUBIN NEGATIVE (Negative); URINE BLOOD NEGATIVE (Negative); URINE CLARITY CLEAR; URINE COLOR YELLOW; URINE GLUCOSE-RANDOM NEGATIVE (Negative); URINE KETONES NEGATIVE (Negative); URINE LEUKOCYTES-REFLEX NEGATIVE (Negative); URINE NITRITE-REFLEX NEGATIVE (Negative); URINE PROTEIN NEGATIVE (Negative); URINE UROBILINOGEN 0.2 E.U./dl (0.2-1.0)
[2018-10-05 19:15] LABS: HEMATOCRIT 37.6 % (42.0-52.0); HEMOGLOBIN 12.6 gm/dL (14.0-18.0); MCH 29.4 pg (26.0-34.0); MCHC 33.5 g/dL (28.0-37.0); MCV 87.6 fL (80.0-100.0); MPV 7.3 fl. (7.2-11.1); NUCLEATED RBCS 0 /100WBC; PLATELET COUNT* 243 thou/uL (150-400); RDW-CV 14.3 % (10.5-14.5); WBC 10.1 thou/uL (4.0-11.0)
[2018-10-05 19:22] LABS: ANION GAP 2 mmol/L (7-16); BUN 19 mg/dL (7-18); CALCIUM 8.1 mg/dL (8.5-10.1); CHLORIDE 102 mmol/L (98-107); CO2 33 mmol/L (21-32); GLUCOSE 100 mg/dL (70-99); POTASSIUM 3.1 mmol/L (3.5-5.1); SODIUM 137 mmol/L (136-145)
[2018-10-05 19:29] LABS: ALBUMIN 2.8 g/dL (3.4-5.0); ALKALINE PHOSPHATASE 75 U/L (46-116); LIPASE 73 U/L (73-393); SGOT 16 U/L (15-37); SGPT 28 U/L (30-65); TOTAL PROTEIN 5.6 g/dL (6.4-8.2); TROPONIN-I LEVEL <0.06 ng/mL (<0.06)
[2018-10-05 19:42] LABS: ABSOLUTE EOSINOPHILS 0.1 thou/uL (0.0-0.7); ABSOLUTE LYMPHOCYTES 1.4 thou/uL (0.8-5.3); ABSOLUTE MONOCYTES 0.6 thou/uL (0.0-1.2)
[2018-10-05 19:43] LABS: PLATELET ESTIMATE ADEQUATE
[2018-10-05] MEDS ORDERED: POTASSIUM20 PO (20:28)
[2018-10-05] MEDS ORDERED: ACETAMINOPHEN-1 EAC1 PO (20:30)
[2018-10-05 20:40] VITALS: BP 125/77
== END 2018-10-05 20:41 | disposition home or self-care (01) ==
LOC: M.ERS 18:36
PROVIDERS: Physician Assistant
DX: R10.12 Left upper quadrant pain (principal); E87.1 Hypo-osmolality and hyponatremia; Z87.891 Personal history of nicotine dependence; Z90.49 Acquired absence of other specified parts of digestive tract

== ENCOUNTER 2018-10-09 12:52 | Emergency (ER) | payer OTHER ==
[~2018-10-09] VITALS: Ht 172.7 cm; Wt 54.4 kg
[~2018-10-09 12:52] MED LIST changes: +ACETAMINOPHEN-1 EAC1 PO; +POTASSIUM20 PO
[2018-10-09 13:34] LABS: HEMATOCRIT 37.2 % (42.0-52.0); HEMOGLOBIN 12.5 gm/dL (14.0-18.0); MCH 29.7 pg (26.0-34.0); MCHC 33.6 g/dL (28.0-37.0); MCV 88.2 fL (80.0-100.0); MPV 7.3 fl. (7.2-11.1); NUCLEATED RBCS 0 /100WBC; PLATELET COUNT* 208 thou/uL (150-400); RBC 4.22 mil/uL (4.50-6.00); RDW-CV 14.2 % (10.5-14.5); WBC 7.4 thou/uL (4.0-11.0)
[2018-10-09 13:40] LABS: ANION GAP 2 mmol/L (7-16); BUN 13 mg/dL (7-18); CHLORIDE 102 mmol/L (98-107); CO2 32 mmol/L (21-32); GLUCOSE 133 mg/dL (70-99); POTASSIUM 4.2 mmol/L (3.5-5.1); SODIUM 136 mmol/L (136-145)
[2018-10-09 13:51] LABS: ALBUMIN 2.6 g/dL (3.4-5.0); ALKALINE PHOSPHATASE 79 U/L (46-116); SGOT 19 U/L (15-37); SGPT 22 U/L (30-65); TOTAL BILIRUBIN 0.6 mg/dL (<0.1-1.0); TOTAL PROTEIN 6.1 g/dL (6.4-8.2)
[2018-10-09 14:10] LABS: ABSOLUTE EOSINOPHILS 0.1 thou/uL (0.0-0.7); ABSOLUTE LYMPHOCYTES 0.1 thou/uL (0.8-5.3); ABSOLUTE NEUTROPHILS 7.2 thou/uL (1.6-8.1); PLATELET ESTIMATE ADEQUATE
[2018-10-09 14:11] LABS: NT-PRO BRAIN NAT PEPTIDE 339 pg/mL (<300); TROPONIN-I LEVEL <0.06 ng/mL (<0.06)
[2018-10-09 14:14] LABS: INFLUENZA A ANTIGEN None Detected (None Detect); INFLUENZA B ANTIGEN None Detected (None Detect)
[2018-10-09 15:23] VITALS: BP 107/65
--- NOTE | 2018-10-09 15:54 | EKG ---
[place] [address] ELECTROCARDIOGRAM REPORT Name: BECKY SANDERSRIO [facility] [id number] Admission: 10/09/18 Attend Phys: Discharge: 10/09/18 Date of : 44 Report #: [id number] THIS REPORT FOR: //name// [facility] ED Test Date: 2018-10-09 Test Time: 13:05:30 Pat Name: BRUCE SANDERS Department: Room: Gender: M Chief Estimator: Lee CINTRON RN : 1940 Requested By: Olegario Choi Order Number: [id number] MD: Simone Valente Measurements Intervals [place] Rate: 86 P: 82 [place]: 159 QRS: -73 QRSD: 113 T: 54 QT: 358 QTc: 429 Interpretive Statements Sinus rhythm Incomplete RBBB and LAFB Compared to ECG 09/27/2018 22:02:45 ST (T wave) deviation now present Sinus arrhythmia no longer present Electronically Signed On 10-09-2018 15:54:35 TRANSMISSION LINE ENGINEER by Simone Valente [email or web address] <ELECTRONICALLY SIGNED> By: Simone Valente MD, [facility] 10/09/18 1554 1305 1305 Simone Valente MD, [facility] /EPI
== END 2018-10-09 15:24 | disposition home or self-care (01) ==
LOC: M.ERS 12:52
PROVIDERS: Emergency Medicine Emergency Medical Services
DX: J44.1 Chronic obstructive pulmonary disease with (acute) exacerbation (principal); Z90.49 Acquired absence of other specified parts of digestive tract; Z87.891 Personal history of nicotine dependence

== ENCOUNTER → 2018-10-17 | Outpatient (CLI) | payer OTHER | LOC: M.CT 10:07 | DX: J43.9 Emphysema, unspecified (principal); J98.4 Other disorders of lung; R91.8 Other nonspecific abnormal finding of lung field; R91.1 Solitary pulmonary nodule; R63.4 Abnormal weight loss ==

== ENCOUNTER 2018-10-20 16:21 | Inpatient (IN) | payer OTHER ==
[~2018-10-20] VITALS: Ht 172.7 cm; Wt 54.5 kg
[2018-10-20 16:42] VITALS: BP 115/56
[2018-10-20 17:07] LABS: HEMATOCRIT 35.3 % (42.0-52.0); MCH 29.5 pg (26.0-34.0); MCV 86.9 fL (80.0-100.0); MPV 6.9 fl. (7.2-11.1); NUCLEATED RBCS 0 /100WBC; PLATELET COUNT* 234 thou/uL (150-400); RBC 4.06 mil/uL (4.50-6.00); RDW-CV 13.8 % (10.5-14.5); WBC 6.3 thou/uL (4.0-11.0)
[2018-10-20 17:16] LABS: ANION GAP 6 mmol/L (7-16); BUN 14 mg/dL (7-18); CALCIUM 8.2 mg/dL (8.5-10.1); CHLORIDE 99 mmol/L (98-107); CO2 30 mmol/L (21-32); CREATININE 1.2 mg/dL (0.6-1.3); GLUCOSE 110 mg/dL (70-99); POTASSIUM 3.8 mmol/L (3.5-5.1); SODIUM 135 mmol/L (136-145)
[2018-10-20 17:25] LABS: PROTIME 10.7 Seconds (9.20-11.50)
[2018-10-20 17:27] LABS: ALBUMIN 2.5 g/dL (3.4-5.0); ALKALINE PHOSPHATASE 76 U/L (46-116); NT-PRO BRAIN NAT PEPTIDE 298 pg/mL (<300); SGOT 18 U/L (15-37); SGPT 19 U/L (30-65); TOTAL BILIRUBIN 0.6 mg/dL (<0.1-1.0); TOTAL PROTEIN 6.1 g/dL (6.4-8.2); TROPONIN-I LEVEL <0.06 ng/mL (<0.06)
[2018-10-20 17:51] LABS: ABSOLUTE EOSINOPHILS 0.4 thou/uL (0.0-0.7); ABSOLUTE LYMPHOCYTES 0.5 thou/uL (0.8-5.3); ABSOLUTE MONOCYTES 0.4 thou/uL (0.0-1.2); ATYPICAL LYMPHS 1 %; PLATELET ESTIMATE ADEQUATE
[2018-10-20 18:31] LABS: INFLUENZA A ANTIGEN None Detected (None Detect); INFLUENZA B ANTIGEN None Detected (None Detect)
[2018-10-20 18:46] VITALS: BP 110/62
--- NOTE | 2018-10-20 20:00 | NUR ---
PT ARRIVED TO UNIT EARLIER FROM ER, RECEIVED REPORT AND ASSUMED CARE OF PT. SEE ADMISSION ASSESSMENT AND HX. PT ON RA, NO SOB OR COUGH NOTED. PT INSISTED ON RECEIVING RESP TX WILL NOTIFY DR. GUPTA CHEST PAIN. TELEMETRY APPLIED SHOWING SR WITH OCC PVC. WILL CONT TO MONITOR AND ASSIST NEEDED.
[2018-10-20] MEDS ORDERED: VENTOLIN HFA 1818 GM INH (20:10)
[2018-10-20] MEDS ORDERED: DUONEBS INH (20:13)
[2018-10-20] MEDS ORDERED: PREDNISONE 10 M10 M1 PO (20:14)
[2018-10-20] MEDS ORDERED: DOXYCYCLINE 10100 MG PO (20:15)
[2018-10-20 20:18] VITALS: BP 117/71
[2018-10-21] VITALS: BP 131/80
[2018-10-21 04:00] VITALS: BP 104/64
--- NOTE | 2018-10-21 05:53 | NUR ---
SLEPT WELL TONIGHT. DENIES CHEST PAIN. NO CHANGE IN ASSESSMENT. TELEMETRY CONT TO SHOW SR WITH OCC PVC. ACHIEVED HS GOALS OF REST AND SAFETY. HOURLY ROUNDING OBSERVED.
--- NOTE | 2018-10-21 07:45 | NUR ---
ASSUMED CARE OF PT ASSESSED AND DOCUMENTED. PT IS ON CARDIAC MONITER TRACING SR PVC'S HR 72. PT IS A&O WITH NO C/O PAIN. VSS WNL. PT IS ON ROOM AIR AND IS AFEBRILE. BED IS IN LOW POSITION CALL LIGHT IS IN REACH. WM.
[2018-10-21 08:00] VITALS: BP 112/68
[2018-10-21 12:00] VITALS: BP 106/55
--- NOTE | 2018-10-21 12:43 | EKG ---
[place] [address] ELECTROCARDIOGRAM REPORT Name: BRUCE SANDERS Room: [address] ADM IN M.R.#: [id number] Admission: 10/20/18 Attend Phys: Gaurang Morgan Discharge: Date of : 44 Report #: [id number] THIS REPORT FOR: //name// [facility] ED Test Date: 2018-10-20 Test Time: 17:09:48 Pat Name: BRUCE SANDERS Department: Room: [facility] Gender: Block Greaser: Marilu COOK : 1940 Requested By: Olegario Choi Order Number: [id number] MD: Simone Valente Measurements Intervals [place] Rate: 73 P: 94 [place]: 171 QRS: 269 QRSD: 119 T: 72 QT: 394 QTc: 435 Interpretive Statements Sinus rhythm incomplete RBBB LAD, consider left anterior fascicular block Compared to ECG 10/09/2018 13:05:30 no change Electronically Signed On 10-21-2018 12:43:35 ENGRAVER WOOD by Simone Valente [email or web address] <ELECTRONICALLY SIGNED> By: Simone Valente MD, [facility] 10/21/18 1243 1709 1709 Simone Valente MD, [facility] /EPI
--- NOTE | 2018-10-21 12:49 | NUR ---
INITIAL ASSESSMENT: Pt evaluated for d/c planning needs. Reviewed chart and spoke with nurse and pt. Pt is alert and oriented. Pt lives in house with his brother and S-I-L. Pt uses no DME and has not had home health. Pt plans on returning home on d/c from hospital. Will remain available to assist as needed.
[2018-10-21 16:38] VITALS: BP 107/59
--- NOTE | 2018-10-21 17:47 | NUR ---
PT HAS RESTED IN HIS ROOM THIS SHIFT IN BEDSIDE CHAIR. HE HAS HAD NO C/O PAIN OR DISCOMFORT. EDUCATION GIVEN ON DEMAND. HOURLY ROUNDING COMPLETE.
[2018-10-21 19:40] VITALS: BP 95/58
[2018-10-22] VITALS (7 sets, daily range): BP systolic 88–122; BP diastolic 57–73
--- NOTE | 2018-10-22 01:54 | NUR ---
RECIEVED REPORT AND ASSUMED CARE AT 1900. [facility]. BP SOFT, OTHER THAN THAT VITAL SIGNS STABLE. PT DENIES ANY PAIN AT THIS TIME. ASSESSMENT COMPLETED, DISCUSSED PLAN OF CARE, PT UNDERSTANDS. BED LOCKED AND CALL LIGHT WITHIN REACH. FALL PRECAUTIONS IN PLACE. PT UP ADLIB. HOURLY ROUNDING DONE AND ALL NEEDS MET. NURSING WILL CONTINUE TO MONITOR.
[2018-10-22 05:36] LABS: CHOLESTEROL 135 mg/dL (<200); HDL CHOLESTEROL 58 mg/dL (>40); LDL CHOLESTEROL 69 mg/dL (<100); TC:HDL 2.3 Ratio (Not establshd); TRIGLYCERIDE 41 mg/dL (<150); VLDL 8 mg/dL (<40)
[2018-10-22 06:01] LABS: SERUM ASSESSMENT Clear
--- NOTE | 2018-10-22 07:15 | NUR ---
ASSUMED CARE OF PT ASSESSED AND DOCUMENTED. PT IS ON CARDIAC MONITER TRACING SR HR 92. PT IS A&O WITH NO C/O PAIN. VSS WNL. PT IS AFEBRILE AND ON ROOM AIR. MADE PT A WARM CUP OF HALF APPLE JUICE WITH HALF PRUNE JUICE. PT STATES HE DOESNT WANT TO GO HOME UNTILL HE HAS A BM HE STATES THAT WILL MAKE HIS BREATHING EASIER. PT HAD A BM 2/DAYS AGO. CALL LIGHT IS IN REACH.
--- NOTE | 2018-10-22 16:52 | NUR ---
PT HAS RESTED IN HIS ROOM AND WATCHED TV. PT HAS HAD NO S OR SX OF ADVERSE REACTION TO ABT. EDUCATION GIVEN ON DEMAND. HOURLY ROUNDING CONTINUES. PT IS TO BE CAFFIENE FREE TODAY AND NPO AFTER MIDNIGHT FOR NUCLEAR STRESS TEST IN THE AM.
--- NOTE | 2018-10-23 01:51 | NUR ---
RECIEVED REPORT AND ASSUMED CARE AT 1900. [facility] MONITOR IN PLACE. VITAL SIGNS STABLE. PT NPO SINCE MIDNIGHT FOR STRESS TEST. PT UP ADLIB. PT DENIES ANY PAIN AT THIS TIME. ASSESSMENT COMPLETED, DISCUSSED PLAN OF CARE, PT UNDERSTANDS. BED LOCKED AND CALL LIGHT WITHIN REACH. FALL PRECAUTIONS IN PLACE. HOURLY ROUNDING DONE AND ALL NEEDS MET. NURSING WILL CONTINUE TO MONITOR.
[2018-10-23 03:46] VITALS: BP 100/64
[2018-10-23 07:30] VITALS: BP 101/65
[2018-10-23 12:29] VITALS: BP 102/64
[2018-10-23] MEDS ORDERED: PREDNISONE 10 M10 MG PO (14:28)
[2018-10-23] MEDS ORDERED: KEFLEX500 M1 PO (14:28)
--- NOTE | 2018-10-23 16:23 | CARDNUC ---
[place] [address] CARDIAC NUCLEAR IMAGING REPORT Name: BURCE SANDERS Room: [address] IN [facility]#: [id number] Admission: 10/20/18 Attend Phys: Rasheed Lockett Discharge: Date of : 44 Date of Service: 10/23/18 1623 Report #: [id number] THIS REPORT FOR: //name// APPROVED REPORT Imaging Protocol: Rest Tc-99m/Stress Tc-99m 1 day Study performed: 10/22/2018 11:59:00 Indication: Chest pain, Dyspnea, COPD exacerbation Patient Location: In-Patient Room #: 224 Stress Tech: Zaina Roa Stress Nurse: Huma Parish RN NM Tech:BARBIE Real Ht: 5 ft 7 in Wt: 120 lbs BSA: 1.63 m2 BMI: 18.79 Medical History Medical History: Angina, COPD, Fatigue, Former Smoker, No history of CAD, SOB. Medications: ASA 325 MG, NTG Allergies: No known drug allergies Cardiac Risk Factors: Age, SOB, Past Smoker, Age. Previous Cardiac Procedures: None Pretest Chest Pain Characteristics: No chest pain Exercise History: Sedentary Physical Disabilities: Generalized weakness, Legs weak/unstable. Meds Held (24 hrs): NTG Meds Held (48 hrs): NTG Resting Data Rest SPECT myocardial perfusion imaging was performed in supine position 30 minutes following the intravenous injection of 10.9 mCi of Tc-99m Sestamibi. Time of rest injection: 1135 Date: 10/23/2018 Time of rest imagin The images were gated to evaluate regional wall motion and calculate left ventricular ejection fraction. Administration Route: IV Administration Site: Right Wrist Pharmacologic Stress Pharmacologic stress test was performed by injecting Regadenoson 0.4 [place] [address] CARDIAC NUCLEAR IMAGING REPORT Name: BRUCE SANDERS Room: [address] IN ..#: [id number] Admission: 10/20/18 Attend Phys: Rasheed Lockett Discharge: Date of : 44 Date of Service: 10/23/18 1623 Report #: [id number] over 10-15 seconds immediately followed by the intravenous injection of 35.9 mCi of Tc-99m Sestamibi. Time of stress injection: 1325 Time of stress imagin Administration Route: IV Administration Site: Right Wrist Gated Stress SPECT was performed 40 minutes after stress injection. The images were gated to evaluate regional wall motion and calculate left ventricular ejection fraction. Prone imaging was performed. Stress Test Details Stress Test: Pharmacologic stress testing performed using 0.4 mg of regadenoson per 5 mL given IV over 10 seconds. Reason for pharmacologic stress test: physical limitation, weak/unsteady legs.. HR Max Heart Rate (APMHR): 144 bpm Resting HR: 74 bpm Target HR (85% APMHR): 122 bpm Max HR Achieved: 105 bpm % of APMHR: 72 Recovery HR: 97 bpm HR response to stress: Normal HR response to stress BP Resting BP: 112/83 mmHg Max BP: 166/82 mmHg Recovery BP: 136/75 mmHg BP response to stress: Normal blood pressure response to stress. ECG Resting ECG: nsr Stress ECG: nsr ST Change: none Recovery ECG: nsr Recovery ST Change: none Clinical Reason for Termination: Completed protocol Stress Symptoms: Dyspnea, Pain in stomach. Exercise duration: 0 min 0 sec Exercise capacity: 1.00 [place] [address] CARDIAC NUCLEAR IMAGING REPORT Name: BRUCE SANDERS Room: [address]#: [id number] Admission: 10/20/18 Attend Phys: Rasheed Lockett Discharge: Date of : 44 Date of Service: 10/23/18 1623 Report #: [id number] Nurse Comments 78 year old inpatient presented with exacerbation of COPD and report of recent CP and SOA. Patient gait/legs weak and unstable so sitting Lexiscan was completed. Patient tolerated sitting Lexiscan with minimal side effects which resolved with PO caffeine during recovery. Recovery unremarkable. Patient taken via wheelchair by staff to Nuclear Medicine for images. Patient stable with no complaints at that time. Stress ECG Conclusion normal ECG Study Quality Study: Fair Artifact: Moderate Increased GI uptake Study Data SSS: 5 SRS: 2 SDS: 3 Perfusion Review of rest data reveals normal perfusion, without perfusion defects.Imaging obtained following vasodilator stress demonstrate a similar, uniform uptake of tracer without defects. Prone imaging was normal. LVEDV is normal.No segental wall motion abnormality seen.There is gut uptake adjacent to inferior wall in all image sets, likely artifact. Wall Motion normal all segments Nuclear Conclusion ECG Findings: negative for ischemia Clinical Findings: negative for ischemia Nuclear Findings: negative for ischemia Exercise Capacity: normal Left Ventricular Function: normal Risk Study: low Negative perfusion stress test [place] [address] CARDIAC NUCLEAR IMAGING REPORT Name: MARILYNBRUCE Room: [address]#: [id number] Admission: 10/20/18 Attend Phys: Rasheed Lockett Discharge: Date of : 44 Date of Service: 10/23/181622 Report #: [id number] <Conclusion> normal ECG <ELECTRONICALLY SIGNED> By: Herberth Mac MD, [facility] 10/23/18 162 22 1623 Herberth Mac MD, FACC /INF
[2018-10-23 17:15] VITALS: BP 107/64
[2018-10-23 20:00] VITALS: BP 111/69
[2018-10-24] VITALS (7 sets, daily range): BP systolic 101–125; BP diastolic 66–74
--- NOTE | 2018-10-24 05:35 | NUR ---
VITALS STABLE, PATIENT SLEEPING THROUGHOUT MOST OF THE NIGHT. REPORTED NO PAIN. ONLY CONCERN THIS MORNING WAS WHY HE IS NPO. REPORTS HIS MUCINEX DOESN'T WORK WITHOUT WATER, PATIENT AWARE OF PROCEDURE TODAY. MOUTH SWABS PROVIDED, REFUSED LIP MOISTURIZER. CALL LIGHT WITHIN REACH. PATIENT ABLE TO TURN SELF IN BED.
--- NOTE | 2018-10-24 08:55 | CON ---
[address] [address] CONSULTATION Name: ARIELNAYELIBRUCE MARCELINO Room: [address] ADM IN M.R.#: [id number] Admission: 10/20/18 Attend Phys: Gaurang Morgan Discharge: Date of : 42 Report #: [id number] THIS REPORT FOR: //name// CC: Neil Isabel DO Rasheed Lockett DO DATE OF SERVICE: 10/23/2018 ATTENDING PHYSICIAN: Dr. Rasheed Lockett. The patient is located in room 224. INDICATION FOR CONSULTATION: COPD, dyspnea. 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 The patient has been short of breath for the past couple of weeks. He has had some difficulty getting his Advair for the past 3 or 4 months since it fell off his insurance plan. They tried him on Stiolto and Stiolto does not seem to be helping him. He came in with shortness of breath and also atypical chest pain. He is going to have a stress test this afternoon, around 1300, I think chemically induced, he has been seen by Cardiology. His enzymes were negative. The patient is still very active, though he can play 18 holes of golf in a day, takes care of his house, goes up and down the stairs in [place]. He does ride a ____, but still states he stays quite active. Not much cough or sputum is noted at least at this time. He does have wheezing and shortness of breath, which is his major concern. He is supposed to be on montelukast and again either the Stiolto and/or Advair at home and he was taking neither when he came in. He is taking them more as a p.r.n. medication. No peripheral edema is noted. He has not been on oxygen, not on CPAP at night. PAST MEDICAL HISTORY: He has had COPD for the past 5 or 10 years, it has been moderate to moderately severe. He has actually stayed quite active with this. On 10/30/2014, he had a 2 cm right upper lobe nodule that was moderately PET avid and I did a bronchoscopy on him, brushings and washings were negative and the nodule resolved. We thought it was mucus plugging and inflammatory infiltrate; TB, fungus and cytology were all negative. The patient also has some bronchiectasis along with his COPD. ALLERGIES: He has no known medical allergies. PAST SURGICAL HISTORY: He has had a hernia repair and a cholecystectomy. MEDICATIONS: His outpatient meds: He has had previous prednisone [place], [place] [address] CONSULTATION Name: BRUCE SANDERS Room: [address] IN ..#: [id number] Admission: 10/20/18 Attend Phys: Gaurang Morgan Discharge: Date of : 42 Report #: [id number] seemed to help him. He has had a round of doxycycline before he came in and then DuoNeb breathing treatments and then he was supposed to be on Stiolto Respimat 2 puffs daily in the morning. Again, he is out of [facility] and was supposed to be on montelukast, but is not on that. Currently, he is on IV Solu-Medrol at this time and DuoNeb breathing treatments. FAMILY HISTORY: Positive for COPD. SOCIAL HISTORY: He is from his . He lives in [place]. 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 They were both quite good. They are not in service at this time. Probably a 40-50 pack-year history of smoking, states he quit about 10 years ago. Denies any alcohol or illicit drug use. REVIEW OF SYSTEMS: A 14-point review of systems: Weight has been relatively stable, although thin and again relatively good exercise tolerance when he is playing golf. He has more difficulties going up and down stairs and hills. Atypical chest pain noted. Cardiac stress test pending. Rest of the 14-point review of systems was negative except for seen in HPI. PHYSICAL EXAMINATION: GENERAL: Pleasant 78-year-old male in no acute distress at this time. He can talk to me in full sentences at this time, lying in bed. VITAL SIGNS: Blood pressure is 110/65 on no pressors, heart rate 72 and regular, respirations 16, temperature is 36.4 degrees, room air sats 95%. No desaturation study is noted at this time. He is 5 feet 10 inches tall, weight is 55 kilograms or 120 pounds, BMI is borderline low at 18. HEENT AND NECK: Nares and pharynx are clear. Teeth are in fair repair. Mucous membranes are moist. No increase in jugular venous pressure. His sternocleidomastoid muscles are hypertrophied related to COPD. Again, no adenopathy or increased jugular venous pressure noted. CHEST: Reveals markedly diminished breath sounds, prolonged expiratory phase. Few end-expiratory wheezes noted. CARDIOVASCULAR: Regular rate and rhythm without murmur, gallop or rub. Heart rate 72. ABDOMEN: Soft, without masses or megaly. EXTREMITIES: Some mild chronic venous stasis changes, but no cyanosis, clubbing or edema. NEUROLOGIC: Grossly intact. SKIN: Dry and intact. LABORATORY DATA: Hemoglobin is 12, white count 6300, platelets within normal limits at 234,000, differential was normal. Sodium is 135, potassium is 3.8, bicarbonate slightly elevated at 30, BUN 14, creatinine is 1.2, glucose is 110. AST and ALT were within normal limits. Albumin was slightly low at 2.5. Chest x-ray and then CT angio of the chest that Dr. Isabel ordered in the [place] [address] CONSULTATION Name: BRUCE SANDERS Room: [address] ADM IN .R.#: [id number] Admission: 10/20/18 Attend Phys: Gaurang Morgan Discharge: Date of : 42 Report #: [id number] from [facility] shows 4 and 8 mm nodules on the left lung and they are down actually from previous scans from a year ago. He does have COPD, hyperinflation, upper lobe cystic changes consistent with emphysema and some mild pulmonary artery enlargement and pulmonary artery hypertension. IMPRESSION: 1. Dyspnea, multifactorial. 2. Moderate to moderately severe, not oxygen dependent yet, with severe emphysema. 3. Most likely pulmonary artery hypertension. 4. Bronchiectasis. 5. Pulmonary nodules, previous right upper lobe infiltrate with negative fiberoptic bronchoscopy 10/30/2014 with negative workup; negative AFB, fungus and cytology, 6. Atypical chest pain. PLAN: I agree with the patient using his DuoNeb treatments twice a day and then he can use his Stiolto 2 puffs in the morning 5 minutes after his breathing treatment. I told him to try and get back on his montelukast and he needs to call his insurance company to see if they will cover either Symbicort or Breo instead of covering the Advair and I told him, they may change next year and they may cover the Advair. I told the patient to keep in touch with me and we will be happy to see him in the office, although he does live in [place] and ____ to help him out. He normally sees Dr. Isabel for his primary care physician. Bill, thanks again for allowing us to participate in this nice man's care. We will keep you up-to-date on his progress. <ELECTRONICALLY SIGNED> By: Joseph Kelly MD 10/24/18 0855 [id number] Kelly MD /nt
--- NOTE | 2018-10-24 10:42 | NUR ---
VSS, ASSUMED CARE OF PT IN THE AM, ASSESSMENT PERFOMRED AND CHARTED, FALL PRECAUTIONS IN PLACE AND CALL LIGHT IN REACH, PT IS A&O4 AND UP AD RACHID, DENIES ANY PAIN BUT WANTS TO HAVE A BM TODAY, HE IS TRACIMNG SR ON THE MONITOR AND ON RA, WILL FOLLOW WITH PLAN OF CARE AND HE SHOULD BE D/C TODAY.
--- NOTE | 2018-10-24 10:43 | NUR ---
CONTINUE TO FOLLOW, PT ANTICIPATES GOING HOME SOON BUT C/O OF 'HEMORRHOID' DIFFICULTY. WANTS TO TALK WITH DENIES ANY DC NEEDS
[2018-10-24 14:24] LABS: HEMATOCRIT 38.5 % (42.0-52.0); HEMOGLOBIN 12.9 gm/dL (14.0-18.0); MCH 29.5 pg (26.0-34.0); MCHC 33.5 g/dL (28.0-37.0); MCV 88.1 fL (80.0-100.0); NUCLEATED RBCS 0 /100WBC; PLATELET COUNT* 348 thou/uL (150-400); RBC 4.37 mil/uL (4.50-6.00); RDW-CV 14.5 % (10.5-14.5)
[2018-10-24 14:36] LABS: CALCIUM 8.9 mg/dL (8.5-10.1); CREATININE 1.4 mg/dL (0.6-1.3); POTASSIUM 4.8 mmol/L (3.5-5.1)
[2018-10-24 15:14] LABS: ABSOLUTE EOSINOPHILS 0.2 thou/uL (0.0-0.7); ABSOLUTE LYMPHOCYTES 0.2 thou/uL (0.8-5.3); ABSOLUTE MONOCYTES 0.3 thou/uL (0.0-1.2); ABSOLUTE NEUTROPHILS 9.3 thou/uL (1.6-8.1)
[2018-10-24 15:16] LABS: OVALOCYTES Occasional; PLATELET ESTIMATE ADEQUATE
--- NOTE | 2018-10-24 17:28 | NUR ---
VSS, ASSUMED CARE THIS AM, ASSESSMENT PERFOMRED AND CHARTED, FALL PRECAUTIONS IN PLACE AND CALL LIGHT IN REACH, PT IS A&O4, UP AD RACHID, ON RA, DENIES ANY PAIN AND HIS GOAL IS TO HAVE BM TODAY, PT COULD BE D/C TODAY, AT THIS TIME GOAL HAS BEEN MET, PT HAS A BM BUT NOW IS COMPLAING OF HIMORRHIODS I HAVE NOT SEEN ANY EXTERNAL OR ANY BLOOD AT THIS TIME, PT HAS A GI CONSULT, HOURLY ROUNDS COMPLETED AND CHART CHECKED
[2018-10-25] VITALS: BP 124/71
--- NOTE | 2018-10-25 00:07 | NUR ---
INITAL ASSESMENT COMPLETED AT 1944. PT RECIEVING BREATHING TREATMENT AT THAT TIME. PT REPORTED HEMORRHOID PAIN. PREPARATION H APPLIED. SPOKE WITH DR AND RECIEVED ORDER FOR ANUSOL SUPPOSITORY. PT RESTING QUIETLY AT THIS TIME.
[2018-10-25 04:00] VITALS: BP 105/68
--- NOTE | 2018-10-25 05:08 | NUR ---
PT'S HEART RATE IN 40'S DURING NIGHT. BLOOD PRESSURE, TEMPERATURE AND O2 SAT WITHIN NORMAL LIMITS. NO BOWEL MOVEMENT DURING SHIFT. PT STARTED MEDS FOR INTERNAL HEMORHHOIDS. NO ACUTE CHANGES, WILL CONTINUE PLAN OF CARE.
[2018-10-25 07:30] VITALS: BP 123/67
[2018-10-25 12:24] VITALS: BP 130/73
--- NOTE | 2018-10-25 12:35 | CON ---
[address] [address] CONSULTATION Name: BRUCE SANDERS Room: [address] IN M.R.#: [id number] Admission: 10/20/18 Attend Phys: Gaurang Morgan Discharge: Date of : 42 Report #: [id number] THIS REPORT FOR: //name// CC: DR PRATIBHA Lockett DATE OF SERVICE: 10/21/2018 HISTORY OF PRESENT ILLNESS: The patient is a 78-year-old single white male who I was asked to see in the hospital today after he had an episode of chest pain. The patient has no previous history of heart disease. He has had multiple hospitalizations here at [facility]. He is admitted here in 2011 with an episode of abdominal discomfort. He subsequently had a cholecystectomy. The patient was admitted here in 2016 because of his COPD and bronchitis. The patient was last admitted here to [facility] 3 weeks ago on 09/27. He complained of abdominal discomfort and is felt to be constipated. He was discharged home. He is not very active because of COPD. He was doing well until yesterday, he was at home when he suddenly felt cramping in his chest and shortness of breath. He denied any nausea or diaphoresis. He denied any fever or cough. He drove himself to the Emergency Room, was admitted. He has had no recent bleeding or fever. He does have occasional flutter in his chest. He has had no recent syncope. Cardiology consultation was requested. PAST MEDICAL HISTORY: Significant for hernia repair and cholecystectomy. No history of hypertension, diabetes, hyperlipidemia. He has a history of COPD. MEDICATIONS: Uses a nebulizer at home. His only medications include Mucinex and Zantac. ALLERGIES: He has no known drug allergies. FAMILY HISTORY: Negative for heart disease. SOCIAL HISTORY: He is from his , lives by himself in [place], [place]. He stays active, playing golf. He is a retired producer assistant, smoked a pack of cigarettes a day for 35 years, quit about 10 years ago. No alcohol abuse. REVIEW OF SYSTEMS: He has had no history of stroke, peptic ulcer disease, liver disease, kidney disease. He does have a history of prostate cancer, received radiation therapy. He has vitiligo. No psychiatric illness. PHYSICAL EXAMINATION: GENERAL: Revealed an elderly male who was lying in bed, [place] [address] CONSULTATION Name: BRUCE SANDERS Room: [address]#: [id number] Admission: 10/20/18 Attend Phys: Gaurang Morgan Discharge: Date of : 42 Report #: [id number] VITAL SIGNS: He had a blood pressure 110/80, pulse 70, he is afebrile. HEENT: He is anicteric. Conjunctivae pink. Mucous membranes moist. NECK: Veins do not appear distended. No carotid bruits. Neck supple. CHEST: Revealed distant breath sounds. CARDIOVASCULAR: Regular rate and rhythm. ABDOMEN: Soft. EXTREMITIES: Had no edema. Dorsalis pedis pulse 2+ bilaterally. SKIN: Warm and dry. NEUROLOGIC: Nonfocal. His ECG showed a sinus rhythm with left anterior fascicular block, no significant ST or T-wave changes. LABORATORY DATA: Sodium 135, creatinine 1.2, albumin is 2.5. Troponins were all 0.06. His white blood cell count 6.3, hemoglobin 12.0. He had a chest x-ray in the Emergency Room yesterday that showed hyperinflated lung marcus. Some scarring. No pleural effusions, normal heart size. IMPRESSION AND RECOMMENDATIONS: 1. Chest pain. Atypical for angina. No evidence of acute myocardial infarction. After a period of observation, I think it is reasonable to discharge the patient and consider an outpatient pharmacologic nuclear stress test to rule out ischemia. 2. Chronic obstructive pulmonary disease. 3. History of prostate cancer. 4. Previous tobacco abuse. <ELECTRONICALLY SIGNED> By: Simone Valente MD, [facility] 10/25/18 1235 [id number] Valente MD, FACC /nt
--- NOTE | 2018-10-25 15:18 | NUR ---
VSS, ASSUMED CARE IN THE AM, ASSESSMENT PERFORMED AND CHARTED, FALL PRECAUTIONS IN PLACE AND CALL LIGHT IN REACH, PT IS A&O4 AND ON RA, TRACING SR ON THE MONITOR, PT DENIES ANY PAIN, HIS PLAIN IS TO START A BOWEL PREP TONIGHT WILL FOLLOW WITH PLAN OF CARE AND HOURLY ROUNDS.
[2018-10-25 16:00] VITALS: BP 119/71
[2018-10-25 20:00] VITALS: BP 111/72
[2018-10-26 00:13] VITALS: BP 104/64
[2018-10-26 04:14] VITALS: BP 114/70
--- NOTE | 2018-10-26 04:49 | NUR ---
ASSUMED CARE OF PT AFTER REPORT AT 1930. PT A&OX4. VSS. PHSYICAL ASSESSMENT COMPLETED AND CHARTED. PT ON RA WITH 95% O2 SAT. PT TRACING SR/SB PAC ON TELE. PT UP ADLIB TO RESTROOM. PT REFUSED TO HAVE AN ENEMA AND PREFERRED TO DO BOWEL PREP PER GI. 1ST PART OF BOWEL PREP GIVEN PER NOV- HAD A BOWEL MOVEMENT THIS AM. INSTRUCTED ON CLEAR LIQUIDS THIS AM. COMMUNICATES UNDERSTANDING. CALL LIGHT WITHIN REACH. BED IN LOW POSITION.
[2018-10-26 05:28] LABS: ABSOLUTE EOSINOPHILS 0.1 thou/uL (0.0-0.7); ABSOLUTE LYMPHOCYTES 0.8 thou/uL (0.8-5.3); ABSOLUTE MONOCYTES 0.5 thou/uL (0.0-1.2); ABSOLUTE NEUTROPHILS 4.8 thou/uL (1.6-8.1); BASOPHILS 0.2 %; HEMOGLOBIN 12.3 gm/dL (14.0-18.0); LYMPHOCYTES 13.2 %; MCH 29.3 pg (26.0-34.0); MCHC 33.4 g/dL (28.0-37.0); MCV 87.7 fL (80.0-100.0); MONOCYTES 7.6 %; NUCLEATED RBCS 0 /100WBC; PLATELET COUNT* 352 thou/uL (150-400); RBC 4.21 mil/uL (4.50-6.00); WBC 6.2 thou/uL (4.0-11.0)
[2018-10-26 05:46] LABS: ALBUMIN 2.8 g/dL (3.4-5.0); CALCIUM 8.6 mg/dL (8.5-10.1); CREATININE 1.1 mg/dL (0.6-1.3); POTASSIUM 3.9 mmol/L (3.5-5.1); TOTAL BILIRUBIN 0.5 mg/dL (<0.1-1.0); TOTAL PROTEIN 6.4 g/dL (6.4-8.2)
[2018-10-26 06:33] LABS: ESR (SEDRATE) 25 mm/hr (0-20)
[2018-10-26 08:30] VITALS: BP 111/55
[2018-10-26 12:26] VITALS: BP 114/68
--- NOTE | 2018-10-26 19:08 | NUR ---
assumed pt care at 0730, full assesment done as charted. pt a/o x4, denies pain, VSS, SR/pac's on the monitor this am, pt made M:S status today, started on Bowel prep this afternoon, had several small stools this am. up ad karmen, uses call light approprialty for needs. pt transfered to room 315 at approx 1720.
[2018-10-26 23:13] VITALS: BP 114/68
[2018-10-26 23:18] VITALS: BP 136/79
--- NOTE | 2018-10-27 05:26 | NUR ---
PT COMPLETED [employer] BOWEL PREP ORDERED. HAVING LOOSE STOOLS, LAST STOOL EMPTIED WAS YELLOW AND WATERY WITH SMALL AMOUNT OF SEDIMENT PRESENT. RWRIST SL. RT TX GIVEN. HAS BEEN NPO SINCE MIDNIGHT FOR COLONOSCOPY TODAY. UP AD RACHID TO BATHROOM/BSC. DENIES PAIN OR PROBLEMS. AM LABS. ABLE TO USE CALL LITE AND MAKE NEEDS KNOWN.
[2018-10-27 08:20] VITALS: BP 127/67
[2018-10-27 09:07] LABS: ABSOLUTE EOSINOPHILS 0.1 thou/uL (0.0-0.7); ABSOLUTE LYMPHOCYTES 0.8 thou/uL (0.8-5.3); ABSOLUTE MONOCYTES 0.5 thou/uL (0.0-1.2); ABSOLUTE NEUTROPHILS 4.1 thou/uL (1.6-8.1); BASOPHILS 0.4 %; EOSINOPHILS 2.6 %; HEMATOCRIT 35.7 % (42.0-52.0); HEMOGLOBIN 11.9 gm/dL (14.0-18.0); LYMPHOCYTES 14.2 %; MCH 29.3 pg (26.0-34.0); MCHC 33.3 g/dL (28.0-37.0); MCV 87.9 fL (80.0-100.0); MONOCYTES 8.6 %; MPV 7.1 fl. (7.2-11.1); NUCLEATED RBCS 0 /100WBC; PLATELET COUNT* 324 thou/uL (150-400); POLYS 74.2 %; RBC 4.06 mil/uL (4.50-6.00); RDW-CV 14.7 % (10.5-14.5); WBC 5.6 thou/uL (4.0-11.0)
[2018-10-27 09:16] LABS: CALCIUM 8.5 mg/dL (8.5-10.1); CREATININE 0.9 mg/dL (0.6-1.3); POTASSIUM 3.7 mmol/L (3.5-5.1)
[2018-10-27] MEDS ORDERED: SINGULAIR 10 MG10 M1 PO (11:50)
[2018-10-27] MEDS ORDERED: ANUSOL-HC25 MG RECTAL (11:51)
[2018-10-27 12:04] VITALS: BP 127/67
--- NOTE | 2018-10-27 14:41 | NUR ---
PT.SLEEPING. DISCHARGE HELD FOR TODAY,PER NURSING, PT.DROVE HIMSELF TO THE HOSPITAL AND HAD ANESTHESIA TODAY. HE HAS NO ONE ELSE TO COME TO PICK HIM UP. PLAN FOR DISCHARGE TOMORROW.
--- NOTE | 2018-10-27 17:55 | NUR ---
PATIENT LEFT THE FLOOR FOR COLONOSCOPY, RETURNED TO THE FLOOR WITHOUT ANY ISSUES. PATIENT CURRENTLY RESTING IN BED. BED IN LOWEST POSITION, SIDE RAILS UP X2, CALL LIGHT WITHIN REACH, STATES NO NEEDS AT THIS TIME, WILL CONTINUE TO MONITOR.
--- NOTE | 2018-10-27 18:04 | NUR ---
REVIEWED AND AGREE WITH CHARTING BY EDITH NEGRON.
[2018-10-27 20:44] VITALS: BP 109/67
--- NOTE | 2018-10-28 08:16 | NUR ---
PT IS ABLE TO COMMUNICATE HIS NEEDS TO STAFF EFFECTIVELY. HE HAS DENIED THE NEED FOR PAIN MEDICATION UP TO THIS TIME. LIKELY DISCHARGE TODAY.
[2018-10-28 09:05] VITALS: BP 117/62
--- NOTE | 2018-10-28 13:23 | NUR ---
ASSUMED CARE AT 0700. PT IN BED RESTING WATCHING TELEVISION THIS AM. MEDS TAKEN ORDERED, NO C/O PAIN. IV DISCONTINUED WITHOUT DIFFICULTY. SCRIPTS ALONG WITH MEDICATION INFORMATION GIVEN. PT DISCHARGED AT 1315 VIA WHEELCHAIR, ABLE TO AMBULATE FROM WHEELCHAIR TO OWN VEHICLE.
--- NOTE | 2018-10-28 22:50 | CON ---
[facility] [address] [place] [address] CONSULTATION Name: BRUCE SANDERS Room: [address] IN M.R.#: [id number] Admission: 10/20/18 Attend Phys: Gaurang Morgan Discharge: 10/28/18 Date of : 42 Report #: [id number] THIS REPORT FOR: //name// CC: Joseph Harrington DATE OF SERVICE: 10/25/2018 REFERRING PHYSICIAN: Abhijit Martin M.D. REASON FOR CONSULTATION: Rectal bleeding history. IMPRESSION: 1. Chronic anorectal bleeding, most likely related to hemorrhoids - cannot rule out external and internal, but I can certainly see external hemorrhoids. 2. Chronic constipation, which has been worsening over the last several months, with no bowel movement for the last 5 days. 3. Personal history of colon polyps in 2013 with a need for surveillance endoscopy at this time as well. 4. Chronic obstructive pulmonary disease exacerbation, improving. RECOMMENDATIONS: 1. Since the patient has not had much in the way of bowel movement for the last 5 days, he will need to do a 2-day bowel preparation in anticipation of a colonoscopy that will be done on Tuesday with my partner, Dr. Kowalski. At that time, he can determine whether or not the patient is a good candidate to undergo internal hemorrhoidal banding or needs to be referred to at that time. He will also need to be referred to Dr. Dalia Loera for definitive treatment of his hemorrhoidal disease as he does have definitely external hemorrhoids, but he will need to be on a bowel regimen to help with the same. This would include something like MiraLax twice daily or magnesium oxide 400 mg twice daily or something similar to keep his bowels moving. 2. I have discussed these plans with the patient as well and he is agreeable to the same. HISTORY OF PRESENT ILLNESS: The patient is pleasant 78-year-old white male with history of COPD, who was admitted to the hospital for COPD exacerbation. During his hospital stay, he has had a lot problem with severe constipation and has not had much in the way of bowel movement and had some rectal bleeding. He has been having worsening problems over the last several months with his bowels not being normal and having to take some stool softeners as well [place] [address] CONSULTATION Name: BRUCE SANDERS Room: [address]#: [id number] Admission: 10/20/18 Attend Phys: Gaurang Morgan Discharge: 10/28/18 Date of : 42 Report #: [id number] help with constipation, but they have not been working all that well. He has not been able to keep much weight on, though he is able to eat and drink fine. He denies complaints of any dysphagia, odynophagia or postprandial pain. He just had major issues with his bowels not being very good. He states he can go anywhere from 3-4 days without bowel movements and still having issues related to the same. He has also had lot of problem with chronic anorectal pains related to the same. He had hemorrhoidal disease back in 2012, but he was not terribly symptomatic. He has been symptomatic now. ALLERGIES: None. MEDICATIONS: Include Mucinex, Zantac and nebulizers. PAST MEDICAL HISTORY: Remarkable for COPD. He has had previous cholecystectomy and hernia repair. He has had previous colon polyps in the past, with his last examination being performed in 2012. At that time, he also underwent upper endoscopy, which was unrevealing. History of prostate cancer, for which he underwent radiation therapy for the same. He also has vitiligo. SOCIAL HISTORY: The patient is , lives by himself in [place]. He is active, plays golf on a regular basis. He previously smoked for 35 years, but quit 10 years ago. He does not drink alcohol. FAMILY HISTORY: Negative for GI problems. PHYSICAL EXAMINATION: GENERAL: Pleasant 78-year-old gentleman, who is awake and alert. CARDIOPULMONARY EXAMINATION: Revealed a regular rate and rhythm. LUNGS: Clear with diminished breath sounds. ABDOMEN: Soft and not tender. No rebound or guarding noted. LABORATORY DATA: His laboratory tests from 10/24/2018 revealed a white count of 10.0, hemoglobin 12.9, platelet count 348,000, MCV 88.1 and RDW 14.5. His sodium is 135, potassium 4.8, chloride 100, bicarbonate is 30, BUN 17, creatinine 1.4 and GFR 49. Total bilirubin 0.6, alkaline phosphatase 76, AST 18 and ALT 19. His albumin is 2.5. His hemoglobin has been at this level for quite some time, documented all the way back to 2013. DISCUSSION: At the present time, the patient has problems with chronic anorectal bleeding and pain. We will proceed with bowel preparation over the [address] [address] CONSULTATION Name: BRUCE SANDERS Room: [address]#: [id number] Admission: 10/20/18 Attend Phys: Gaurang Morgan Discharge: 10/28/18 Date of : 42 Report #: [id number] next couple of days and endoscopic evaluation of his lower GI tract. I have discussed these plans with the patient as well and he is agreeable to the same. <ELECTRONICALLY SIGNED> By: Toby Cuellar DO 10/28/18 2250 1500 [id number] Cuellar DO /nt
== END 2018-10-28 13:15 | disposition home or self-care (01) | DRG 189 ==
LOC: M.ERS 16:21 → M.2W 17:46 → M.TBA-ER 17:46 → M.2W 18:57 → M.3W 10-26 17:43 → M.ORTHSURG 10-27 16:51
PROVIDERS: Emergency Medicine Emergency Medical Services; Internal Medicine; Internal Medicine Cardiovascular Disease; Internal Medicine Gastroenterology; ADMIT Internal Medicine
PROC: 0DJD8ZZ Inspection of Lower Intestinal Tract, Via Natural or Artificial Opening Endoscopic (ICD-10-PCS; principal; 2018-10-27)
DX: J96.20 Acute and chronic respiratory failure, unspecified whether with hypoxia or hypercapnia (principal); J44.1 Chronic obstructive pulmonary disease with (acute) exacerbation; K62.5 Hemorrhage of anus and rectum; I10 Essential (primary) hypertension; K57.30 Diverticulosis of large intestine without perforation or abscess without bleeding; E78.5 Hyperlipidemia, unspecified; E11.9 Type 2 diabetes mellitus without complications; K59.09 Other constipation; K64.4 Residual hemorrhoidal skin tags; K64.8 Other hemorrhoids; Z90.49 Acquired absence of other specified parts of digestive tract; Z87.891 Personal history of nicotine dependence; Z85.46 Personal history of malignant neoplasm of prostate; Z83.6 Family history of other diseases of the respiratory system; Z86.010 Personal history of colon polyps; Z79.82 Long term (current) use of aspirin; Z79.899 Other long term (current) drug therapy

== ENCOUNTER 2018-12-10 16:41 | Inpatient (IN) | payer OTHER ==
[~2018-12-10] VITALS: Ht 172.7 cm; Wt 56.6 kg
[~2018-12-10 16:41] MED LIST changes: +ANUSOL-HC25 MG RECTAL; +DUONEBS INH; +KEFLEX500 M1 PO; +PREDNISONE 10 M10 M1 PO; +SINGULAIR 10 MG10 M1 PO
[2018-12-10 16:42] VITALS: BP 150/92
[2018-12-10 17:13] LABS: HEMATOCRIT 41.1 % (42.0-52.0); HEMOGLOBIN 13.4 gm/dL (14.0-18.0); MCH 28.6 pg (26.0-34.0); MCHC 32.7 g/dL (28.0-37.0); MCV 87.3 fL (80.0-100.0); MPV 7.7 fl. (7.2-11.1); NUCLEATED RBCS 0 /100WBC; PLATELET COUNT* 245 thou/uL (150-400); RDW-CV 15.3 % (10.5-14.5); WBC 12.2 thou/uL (4.0-11.0)
[2018-12-10 17:30] LABS: ALBUMIN 3.2 g/dL (3.4-5.0); CALCIUM 8.9 mg/dL (8.5-10.1); CREATININE 1.1 mg/dL (0.6-1.3); POTASSIUM 3.7 mmol/L (3.5-5.1); TOTAL BILIRUBIN 0.7 mg/dL (<0.1-1.0); TOTAL PROTEIN 6.6 g/dL (6.4-8.2)
[2018-12-10 17:40] LABS: ABSOLUTE EOSINOPHILS 0.1 thou/uL (0.0-0.7); ABSOLUTE LYMPHOCYTES 1.5 thou/uL (0.8-5.3); ABSOLUTE NEUTROPHILS 10.6 thou/uL (1.6-8.1)
[2018-12-10 17:41] LABS: PLATELET ESTIMATE ADEQUATE
[2018-12-10 17:42] LABS: ANISOCYTOSIS Occasional
[2018-12-10 20:45] VITALS: BP 131/90
--- NOTE | 2018-12-10 21:46 | NUR ---
PT GIVEN TURKEY SANDWICH AND WATER.
[2018-12-10 22:57] VITALS: BP 116/84
[2018-12-11 00:32] VITALS: BP 122/71
[2018-12-11 04:00] VITALS: BP 108/62
--- NOTE | 2018-12-11 05:00 | NUR ---
PT RECEIVED FROM ED AT [facility]. ALERT AND ORIENTED X4. SAT MAINTAINED IN 2L NC. CALL LIGHT WITHIN REACH AND BED IN LOW POSITION. DENIES PAIN. SAY'S FEEL BETTER THIS MORNING. HOURLY ROUNDING DONE FOR PT SAFETY.
[2018-12-11 07:58] VITALS: BP 119/76
--- NOTE | 2018-12-11 09:31 | NUR ---
ASSUMED CARE OF PT THIS AM AROUND 07- DIRECTOR OF PHYSICAL SECURITY IN PLACE ORDERED, TRACING SR- UPON ASSESSMENT PT NOTED TO BE RESTING ON BED SIDE- PT A&O X4- CONTINENT OF BOWEL AND BLADDER- SBA WITH TRANSFERS FOR SAFETY- WHEEZING NOTED, RESP LABORED AT TIMES- DYSPNEA NOTED ON EXERTION-BREATHING TX THIS AM PER R/T VSS, O2 SAT 98% ON 2L VIA NC-ABD SOFT/FLAT/NON-TENDER, BS X 4 QUADS- LAST BM REPORTED 12/10/18, SCHEDULED MIRALAX GIVEN THIS AM- IV NOTED TO LEFT AC INTACT AND SL-FAIR PO INTAKE NOTED THIS AM WITH BREAKFAST-CALL LIGHT AND PERSONAL BELONGINGS WITH IN REACH- HOURLY ROUNDS IN PLACE R/T SAFETY/NEEDS- ALL NEEDS MET AT THIS TIME-WCTM
[2018-12-11 12:14] VITALS: BP 135/81
[2018-12-11 14:26] VITALS: BP 114/69
--- NOTE | 2018-12-11 16:41 | NUR ---
PT CURRENLTY RESTING ON BED SIDE- [place] TECHNICIAN IN PLACE ORDERED, TRACING SR- IV TO LEFT FA NOTED INTACT AND SL- IV LEVAQUIN ORDERED DAILY WITH 1ST DOSE GIVEN THIS SHIFT- ORAL PREDNISONE D/C'D WITH SOLU-MED 62.5MG Q 8 HOURS STARTED AND GIVEN PRESCIBED- ECHO ORDERED AND COMPLETED THIS SHIFT, RESULTS PENDING- NASAL CONGESTION REPORTED PER PT WITH DAILY OCEAN SPRAY 50CC PER SYRINGE TO BE DAILY/COMPLETED- CALL LIGHT AND PERSONAL BELONGINGS WITH IN REACH- PT MAKES NEEDS KNOWN- ALL NEEDS MET AT THIS TIME-WCTM
--- NOTE | 2018-12-11 17:27 | 2DMMODE ---
[place] [address] 2 D/M-MODE ECHOCARDIOGRAM Name: BRUCE SANDERS Room: [facility] ADM IN [facility]#: [id number] Admission: 12/10/18 Attend Phys: Abhijit Martin Discharge: Date of : 44 Date of Service: 12/11/18 1727 Report #: [id number] THIS REPORT FOR: //name// APPROVED REPORT Study performed: 12/11/2018 15:00:50 EXAM: Comprehensive 2D, Doppler, and color-flow Echocardiogram Patient Location: In-Patient Room #: [facility] Status: routine BSA: 1.66 HR: 68 bpm BP: 119/76 mmHg Rhythm: NSR Other Information Study Quality: Good Indications COPD Dyspnea 2D Dimensions IVSd: 9.31 (7-11mm) LVDd: 44.88 mm PWd: 8.61 (7-11mm) LVDs: 27.54 (25-40mm) Aortic Root: 39.25 mm Volumes Left Atrial Volume (Systole) LA ESV Index: 25.30 mL/m2 Aortic Valve AoV Peak Morgan.: 0.99 m/s AO Peak Gr.: 3.92 mmHg LVOT Max P.74 mmHg AO Mean Gr.: 2.04 mmHg LVOT Mean P.73 mmHg LVOT Max V: 0.66 m/s AO V2 VTI: 18.49 cm LVOT Mean V: 0.38 m/s LVOT V1 VTI: 11.50 cm Mitral Valve E/A Ratio: 0.75 MV Decel. Time: 219.63 [place] [address] 2 D/M-MODE ECHOCARDIOGRAM Name: MARILYNBRUCE Room: [address] IN [facility]#: [id number] Admission: 12/10/18 Attend Phys: Abhijit Martin Discharge: Date of : 44 Date of Service: 12/11/18 1727 Report #: [id number] MV E Max Morgan.: 0.42 m/s MV PHT: 63.69 ms MVA (PHT): 3.45 cm2 TDI E/Lateral E': 3.00 E/Medial E': 4.20 Medial E' Morgan.: 0.10 m/s Lateral E' Morgan.: 0.14 m/s Pulmonary Valve PV Peak Morgan.: 1.09 m/s PV Peak Gr.: 4.76 mmHg Tricuspid Valve RAP Estimate: 5.00 mmHg TR Peak Gr.: 30.94 mmHg RVSP: 35.00 mmHg PA Pressure: 35.00 mmHg Left Ventricle The left ventricle is normal size. There is normal LV segmental wall motion. There is normal left ventricular wall thickness. Left ventricular systolic function is normal. The left ventricular ejection fraction is within the normal range. LVEF is 60-65%. Grade I - abnormal relaxation pattern. Right Ventricle Right ventricle is dilated. Right ventricle is mildly hypokinetic. Atria The left atrium size is normal. Right atrium is dilated. Aortic Valve The aortic valve is normal in structure. Trace aortic regurgitation. There is no aortic valvular stenosis. Mitral Valve The mitral valve is normal in structure. There is no mitral valve regurgitation noted. No evidence of mitral valve stenosis. Tricuspid Valve The tricuspid valve is normal in structure. Mild tricuspid regurgitation. estimate pa pressure 50 mm Hg Pulmonic Valve The pulmonary valve is normal in structure. There is no pulmonic [place] [address] 2 D/M-MODE ECHOCARDIOGRAM Name: BRUCE SANDERS Room: [place] [address] ADM IN .R.#: [id number] Admission: 12/10/18 Attend Phys: Abhijit Martin Discharge: Date of : 44 Date of Service: 12/11/18 1727 Report #: [id number] Great Vessels The aortic root is normal in size. IVC is normal in size and collapses >50% with inspiration. Pericardium There is no pericardial effusion. <Conclusion> LVEF is 60-65%. Right ventricle is mildly hypokinetic. Right atrium is dilated. Mild tricuspid regurgitation. estimate pa pressure 50 mm Hg <ELECTRONICALLY SIGNED> By: Simone Valente MD, FACC 12/11/181726 26 26 Simone Valente MD, FACC /INF
[2018-12-11 19:50] VITALS: BP 116/69
[2018-12-12] VITALS: BP 124/71
[2018-12-12 04:00] VITALS: BP 102/69
--- NOTE | 2018-12-12 04:52 | NUR ---
PT CARE ASSUMED AT 1930. ALERT AND ORIENTED X4. SAT MAINTAINED IN 2L NC. CALL LIGHT WITHIN REACH AND BED IN LOW POSITION. DENIES PAIN. HOURLY ROUNDING DONE FOR PT SAFETY.
[2018-12-12 05:25] LABS: HEMOGLOBIN 13.3 gm/dL (14.0-18.0); MCH 28.3 pg (26.0-34.0); MCHC 32.4 g/dL (28.0-37.0); MCV 87.5 fL (80.0-100.0); MPV 7.8 fl. (7.2-11.1); RBC 4.69 mil/uL (4.50-6.00); RDW-CV 15.4 % (10.5-14.5); WBC 9.8 thou/uL (4.0-11.0)
[2018-12-12 05:53] LABS: CALCIUM 9.1 mg/dL (8.5-10.1); CREATININE 1.2 mg/dL (0.6-1.3); POTASSIUM 5.5 mmol/L (3.5-5.1); TOTAL BILIRUBIN 0.7 mg/dL (<0.1-1.0); TOTAL PROTEIN 6.5 g/dL (6.4-8.2)
[2018-12-12 07:50] VITALS: BP 151/73
--- NOTE | 2018-12-12 09:03 | NUR ---
ASSUMED CARE OF PT THIS AM AROUND 0715- INSURANCE CONSULTANT IN PLACE ORDERED, TRACING SR/BBB- UPON ASSESSMENT PT NOTED TO BE RESTING ON SIDE OF BED- PT A&O X4-CONTINENT OF BOWEL AND BLADDER- UP AD-RACHID IN ROOM, STEADY GAIT NOTED- EXPIRATORY WHEEZING NOTED, WITH NON-PRODUCTIVE COUGH- VSS, O2 SAT 99% ON 2L VIA NC- ABD SOFT/ROUND/NON-TENDER, BS X4 QUADS- PT REPORTS SMALL BM LAST 12/11/18- IV NOTED TO LEFT FA INTACT, IV ABT GIVEN THIS AM PRESCIBED WITH NO ADVERSE REACTIONS TO NOTE- PT OFF UNIT THIS FOR ORDERED CT OF SINUSES, RESULTS PENDING-GOOD PO INTAKE NOTED THIS AM WITH BREAKFAST- PT DENIES ANY C/O PAIN/DISCOMFORT AT THIS TIME- CALL LIGHT AND PERSONAL BELONGINGS WITH IN REACH0 HOURLY ROUNDS IN PLACE R/T SAFETY/NEEDS- ALL NEEDS MET AT THIS TIME-WCTM
--- NOTE | 2018-12-12 12:37 | NUR ---
Nutrition: Consult received for "weight change." Pt admitted with COPD exac, SOA, SBO, dehydration. H/o prostate ca. BG 177, K+ 5.5, alb 3. RX: solumedrol, lax. Eating well on Regular diet. Wt is 122#. Per [employer], wt has been 122-125# since 2018. No apparent recent wt changes recorded. Appears at low risk at this time.
[2018-12-12 12:43] VITALS: BP 121/76
--- NOTE | 2018-12-12 13:30 | NUR ---
MET WITH PT TO DISCUSS HOME SITUATION/DC PLANNING. PT LIVES WITH BROTHER AND MYCHAL. IS INDEPENDENT WITH ADLS. USES NEBULIZER. PT DENIES DC NEEDS AT THIS TIME. WILL FOLLOW
--- NOTE | 2018-12-12 13:44 | CON ---
[address] [address] CONSULTATION Name: BRUCE SANDERS Room: [place] [address] ADM IN M.R.#: [id number] Admission: 12/10/18 Attend Phys: Zach Friedman Discharge: Date of : 44 Report #: [id number] THIS REPORT FOR: //name// CC: Abhijit Isabel DATE OF SERVICE: 12/11/2018 CHIEF COMPLAINT: Dyspnea. HISTORY OF PRESENT ILLNESS: The patient is a 78-year-old male with chronic obstructive airways disease. He developed shortness of breath on Tuesday; it did not get any better on Tuesday. Later in the day, he eventually contacted the EMS and was brought to the Emergency Room. His shortness of breath has persisted. Since being admitted to the hospital he is somewhat better. He does have a cough with slight phlegm production. According to the patient, he has not had any fever or chills. PAST MEDICAL HISTORY: Significant for severe COPD, frequent exacerbations, history of partial bowel obstruction in the past. Past medical history also consists of prostatic carcinoma and he has had cholecystectomy in the past. ALLERGIES: None known. MEDICATIONS: Consist of Stiolto, which he uses once a day. He is on aerosol treatments at least 3-4 times per day and prednisone 20 mg a day. SOCIAL HISTORY: Lives with a brother and he is a smoker 1 pack per day. He quit about a year ago. FAMILY HISTORY: Positive for chronic obstructive airways disease. No history of cancer. REVIEW OF SYSTEMS: CONSTITUTIONAL: He denies fever or chills. EYES: He denies loss of vision. EARS: No hearing loss. RESPIRATORY: See above. CARDIOVASCULAR: He denies chest pain, edema, orthopnea. GASTROINTESTINAL: He denies nausea, vomiting or abdominal pain. GENITOURINARY: He denies dysuria, hematuria, or flank pain. MUSCULOSKELETAL: Negative also for joint swelling and/or tenderness. SKIN: Negative for rash or lesions. NEUROLOGIC: He is denying numbness, tingling, headache, blurred vision or weakness. ENDOCRINE: [place] [address] CONSULTATION Name: BRUCE SANDERS Room: [address] IN [facility]#: [id number] Admission: 12/10/18 Attend Phys: Zach Friedman Discharge: Date of : 44 Report #: [id number] ALLERGIES: He denies history of allergies. SINUSES: He is complaining of sinus congestion and blockage of his right nostril. PHYSICAL EXAMINATION: VITAL SIGNS: Blood pressure 135/81, respiratory rate 17, pulse rate 93 and regular, temperature 97.9 degrees. His weight is 122 pounds. GENERAL APPEARANCE: Awake, alert, oriented. HEAD: Atraumatic. EYES: Pupils are round, equal, reactive. NOSE: Nasal passages are patent. No evidence of obstruction. EARS: Auricular structures are normal, no auditory canal drainage. ORAL CAVITY: Moist. No lesions. NECK: There is no adenopathy or JVD. CHEST: Scattered end expiratory wheezes, marked diminished breath sounds throughout all lung marcus. No crackles. CARDIOVASCULAR: Distant heart tones, regular rhythm. S1 and S2 are normal. No evidence of extra heart sound. ABDOMEN: Soft. No organomegaly or tenderness. EXTREMITIES: Negative for edema. No evidence of clubbing. SKIN: Warm, dry, no rash. No evidence of cyanosis. MUSCULOSKELETAL: Negative for swelling. NEUROLOGIC: The patient moves all four extremities on command and his strength is equal bilaterally. LYMPHATICS: Does not reveal any evidence of lymphadenopathy. LABORATORY DATA: No recent arterial blood gases. Hemoglobin and hematocrit on admission of 13 and 41, white count 12,200. Electrolytes reveal sodium 143, potassium 3.7, chloride 104, CO2 is 33, BUN of 19, creatinine 1.1. Chest x-ray positive for evidence of COPD. There is no evidence of acute infiltrates. There is marked flattening of the diaphragms bilaterally with hyperexpansion. ASSESSMENT: 1. Xcdoc-mv-[id number] respiratory failure with insufficiency. 2. Exacerbation of his chronic obstructive pulmonary disease. 3. Bronchospasm. 4. Prior history of tobacco abuse. 5. History of prostate carcinoma. RECOMMENDATION: Continue with bronchodilator therapy, steroid therapy. We will add Brovana if not already performed. Continue with his maintenance medication as well. He will probably need 2-3 days of hospitalization[place] [address] CONSULTATION Name: BRUCE SANDERS Room: [address] IN ..#: [id number] Admission: 12/10/18 Attend Phys: Zach Friedman Discharge: Date of : 44 Report #: [id number] bronchospasm is contributing to his exacerbation at this time. Our goal will be to minimize his bronchospastic condition. <ELECTRONICALLY SIGNED> By: Diego De Jesus MD 12/12/18 1344 1443 2023Aljolene Hooks MD /nt
--- NOTE | 2018-12-12 16:19 | NUR ---
PT CURRENTLY RESTING IN BED, WATCHING TV- BUSINESS INTELLIGENCE REPORTING ANALYST IN PLACE ORDERED, TRACING SR- IV TO LEFT FA INTACT AND SL- CT SINUSES COMPLETED, RESULTS NOTED IN Meeting To You- PANCRELIPASE STARTED THIS SHIFT PRIOR TO DINNER WITH 1ST DOSE GIVEN- LABS ORDERED FOR IN AM ALONG WITH CHEST X-RAY-GOOD PO INTAKE NOTED THIS SHIFT WITH MEALS- PT DENIES ANY C/O PAIN/DISCOMFORT AT THIS TIME- CALL LIGHT AND PERSONAL BELONGINGS WITH IN REACH- PT MAKES NEEDS KNOWN- ALL NEEDS MET AT THIS TIME-WCTM
[2018-12-12 16:26] VITALS: BP 137/74
[2018-12-12 19:50] VITALS: BP 111/70
[2018-12-13] VITALS: BP 124/70
--- NOTE | 2018-12-13 03:46 | NUR ---
RECIEVED REPORT AND ASSUMED CARE AT 1900. GRAPHITE MILL OPERATOR IN PLACE. VITAL SIGNS STABLE. SC DENIES ANY PAIN AT THIS TIME. PT UP ADLIB TO THE BATHROOM WITH OXYGEN. ASSESSMENT COMPLETED AND DISCUSSED PLAN OF CARE, PT UNDERSTANDS. BED LOCKED AND CALL LIGHT WITHIN REACH. FALL PRECAUTIONS IN PLACE. HOURLY ROUNDING DONE AND ALL NEEDS MET. NURSING WILL CONTINUE TO MONITOR.
[2018-12-13 04:00] VITALS: BP 109/71
[2018-12-13 05:20] LABS: ABSOLUTE LYMPHOCYTES 0.6 thou/uL (0.8-5.3); ABSOLUTE MONOCYTES 0.4 thou/uL (0.0-1.2); ABSOLUTE NEUTROPHILS 11.8 thou/uL (1.6-8.1); BASOPHILS 0.1 %; HEMATOCRIT 41.1 % (42.0-52.0); HEMOGLOBIN 13.4 gm/dL (14.0-18.0); LYMPHOCYTES 4.6 %; MCH 28.4 pg (26.0-34.0); MCHC 32.7 g/dL (28.0-37.0); MCV 86.9 fL (80.0-100.0); MONOCYTES 3.1 %; MPV 8.4 fl. (7.2-11.1); NUCLEATED RBCS 0 /100WBC; PLATELET COUNT* 243 thou/uL (150-400); POLYS 92.2 %; RBC 4.73 mil/uL (4.50-6.00); RDW-CV 15.5 % (10.5-14.5); WBC 12.8 thou/uL (4.0-11.0)
[2018-12-13 05:37] LABS: CALCIUM 9.4 mg/dL (8.5-10.1); CREATININE 1.1 mg/dL (0.6-1.3); MAGNESIUM 2.2 mg/dL (1.8-2.4); POTASSIUM 5.3 mmol/L (3.5-5.1)
[2018-12-13 08:00] VITALS: BP 133/74
[2018-12-13 12:00] VITALS: BP 123/80
--- NOTE | 2018-12-13 14:49 | NUR ---
ASSUMED PT CARE REPORT RECEIVED FROM NURSE. PT IS AOX4 SARRYTHMIA ON TECHNOLOGY ARCHITECT. ON 2 L NC. SATURATION IS 98%, PT IS PLEASANT. MEDICINE GIVEN ORDERED. PT HAS NO COMPLAINT. IV ABX GIVEN. WILL CONTINUE TO MONITOR
--- NOTE | 2018-12-13 18:05 | NUR ---
PT TO BE TRANSFERRED TO [facility]. REPORT GIVEN TO J&S NURSE. WILL CONTINUE TO MONITOR
--- NOTE | 2018-12-13 19:00 | NUR ---
ASSUMED PATIENT CARE @ 1825. ORIENTED TO ROOM. PT ALERT AND ORIENTED X 4. OXYGEN @ 2L/NC. UP AD RACHID. CALL LIGHT WITHIN REACH.
--- NOTE | 2018-12-14 06:19 | NUR ---
PATIENT HAS SLEPT WELL THROUGHOUT THE NIGHT. VSS ON 2L 02 VIA NASAL CANNULA. PATIENT UP AD-RACHID AND STEADY. PATIENT USING BEDSIDE URINAL AT NIGHT. IV IN LEFT FOREARM-SL. PATIENT INSTRUCTED TO USE CALL LIGHT WHEN NEEDING ASSISTANCE. HOURLY ROUNDS MADE. WILL CONTINUE WITH PLAN OF CARE AND NURSING TO MONITOR.
[2018-12-14 08:00] VITALS: BP 122/76
[2018-12-14 17:13] VITALS: BP 119/76
--- NOTE | 2018-12-14 17:34 | NUR ---
PT ALERT AND ORIENTED X 4. DENIES PAIN OR NAUSEA. WISAM ON RA. IV PATENT. UP AD RACHID IN ROOM. HOURLY ROUNDS MAINTAINED. CALL LIGHT WITHIN REACH.
[2018-12-14 21:00] VITALS: BP 132/82
--- NOTE | 2018-12-15 01:04 | NUR ---
INITAL ASSESMENT COMPLETED AT 2100. PT'S O2 SAT 95% ON ROOM AIR AT THAT TIME. BLOOD PRESSURE AND HEART RATE WITHIN NORMAL LIMITS, PT AFEBRILE. HS MEDS ADMINISTERED PER EMAR. PT DENIED PAIN, DISCOMFORT OR SHORTNESS OF AIR AT THAT TIME. CALL LIGHT IN REACH, PT USING PROPERLY.
[2018-12-15 04:00] VITALS: BP 127/87
--- NOTE | 2018-12-15 04:38 | NUR ---
AT 0400 PT REPORTED HAVING FOOT CRAMPS. PT GIVEN PRN FLEXARIL.
[2018-12-15 08:15] VITALS: BP 135/81
--- NOTE | 2018-12-15 16:14 | NUR ---
PATIENT TRANSFERRED FROM [facility] TO ROOM 313. NO COMPLAINTS THIS SHIFT. UP AMBULATING WITHOUT DIFFICULTY. IV REMAINS SL, SCHED ABX AND STEROIDS GIVEN ORDERED. POSSIBLE DISCHARGE TOMORROW, REMAINS ON RA.
--- NOTE | 2018-12-15 16:24 | NUR ---
Received message from physician that pt will need to contact insurance re: Advair coverage and what he has tried in the past that has not been effective. Spoke with pt. Pt said his PCP has already contacted insurance re: Advair coverage. Pt said generic is now available for Advair and that insurance covers it and prescription is waiting for him at pharmacy.
[2018-12-15 16:34] VITALS: BP 133/83
--- NOTE | 2018-12-16 04:57 | NUR ---
this nurse assumes care of pt 12/15/18 ayt 1930, pt is alert and oriented x4, up ad karmen, remains on room air, complains of soa with exertion, pt expresses that new "breathing medications do not work", he also expresses that he had started to feel better and now "feel like im doing worse", RT spoke with patient about his current respiratory medications, pt is on room air o2 sat 95%-96%, and remains a febrile, pt has not complaints of pain, resting quietly in bed at this time with call light within reach
[2018-12-16 07:30] VITALS: BP 127/85
[2018-12-16 15:30] VITALS: BP 132/86
--- NOTE | 2018-12-16 17:39 | NUR ---
PT REMAINED ALERT AND ORIENTED. PT UP AD RACHID. PT STATES SOA IMPROVING. FALL RISK PRECAUTIONS IN PLACE. HOURLY ROUNDING COMPLETED. WILL CONTINUE TO MONITOR.
--- NOTE | 2018-12-17 03:52 | NUR ---
ASSUMED CARE OF PT AT 1900. PT IS ALERT AND ORIENTED. VSS. PERRLA. NO COMPLAINTS OF PAIN. PT IS ON ROOM AIR. PT IS SLEEPING QUIETLY IN BED. RESPIRATIONS ARE EVEN AND NONLABORED. WILL CONTINUE TO MONITOR PT.
[2018-12-17 07:30] VITALS: BP 123/78
[2018-12-17 15:30] VITALS: BP 124/79
--- NOTE | 2018-12-17 16:38 | NUR ---
PT REMAINED ALERT AND ORIENTED. PT RESTING IN ROOM. FALL RISK PRECAUTIONS IN PLACE. HOURLY ROUNDING COMPLETED. WILL CONTINUE TO MONITOR.
[2018-12-17 20:50] VITALS: BP 123/69
--- NOTE | 2018-12-18 05:42 | NUR ---
PT A&O X4. SAO2 95% RA. PT UP AD RACHID, DENIES PAIN DURING SHIFT. PT USES URINALS, CALL OUT APPROPRIATELY. MEDS GIVEN SCHEDULED. BED IN LOW POSTION, CALL LIGHT WITHIN REACH. WILL CONTINUE PLAN OF CARE.
[2018-12-18 07:50] VITALS: BP 119/76
[2018-12-18] MEDS ORDERED: SINGULAIR 10 MG10 M1 PO (13:23)
[2018-12-18] MEDS ORDERED: AUGMENTIN 875-1 EACH PO (13:24)
[2018-12-18] MEDS ORDERED: PROTONIX40 M1 PO (13:24)
[2018-12-18 13:28] VITALS: BP 119/76
[2018-12-18 14:33] VITALS: BP 119/76
--- NOTE | 2018-12-18 14:35 | NUR ---
KATIE met with pt to discuss dc planning and pt preference for HH services. Pt wanted HH out of [facility] that does not have HH but [facility] in [place] accepted pt and in network with pt insurance; pt agreeable to this. KATIE called and faxed referral to [facility]; they will begin services as soon as they receive authorization from pt insurance, [employer]. [phone] fax [phone]
--- NOTE | 2018-12-18 15:11 | NUR ---
PATIENT UP AD RACHID AROUND ROOM WITHOUT DIFFICULTY. IV SCHED ABX INFUSED THIS AM. PATIENT TO BE DISCHARGED HOME. IV DC'D. PULMONARY REHAB NOTIFIED FOR ORDER AND WILL CONTACT [facility] WHERE PATIENT LIVES BY. SCRIPTS CALLED INTO [facility] IN [place] PER PATIENT REQUEST. HH SET UP BY ARIELLA PER PATIENT REQUEST. VERBALIZES UNDERSTANDING OF PAPERWORK. PATIENT TAKEN OUT VIA WHEELCHAIR WITH ALL BELONGINGS.
== END 2018-12-18 15:00 | disposition home health service (06) | DRG 189 ==
LOC: M.ERS 16:41 → M.TBA-ER 18:23 → M.2W 18:23 → M.ERS 18:23 → M.TBA-ER 23:35 → M.2W 23:35 → M.ORTHSURG 12-13 18:26 → M.3W 12-15 16:13
PROVIDERS: Internal Medicine; Internal Medicine Critical Care Medicine; Personal Emergency Response Attendant; ADMIT Internal Medicine
DX: J96.21 Acute and chronic respiratory failure with hypoxia (principal); R65.11 Systemic inflammatory response syndrome (SIRS) of non-infectious origin with acute organ dysfunction; J44.1 Chronic obstructive pulmonary disease with (acute) exacerbation; K59.00 Constipation, unspecified; Z85.46 Personal history of malignant neoplasm of prostate; Z90.49 Acquired absence of other specified parts of digestive tract; Z99.81 Dependence on supplemental oxygen; Z87.891 Personal history of nicotine dependence; Z79.51 Long term (current) use of inhaled steroids; Z79.899 Other long term (current) drug therapy; Z82.5 Family history of asthma and other chronic lower respiratory diseases

== ENCOUNTER 2020-07-25 21:24 | Inpatient (IN) | payer OTHER ==
[~2020-07-25] VITALS: Ht 177.8 cm; Wt 56.5 kg
[~2020-07-25 21:24] MED LIST changes: +AUGMENTIN 875-1 EACH PO; +PROTONIX40 M1 PO
[2020-07-25 21:27] VITALS: BP 153/88
[2020-07-25 22:04] LABS: BE -0.9 mmol/L (-2 to +3); PCO2 36.9 mmHg (35.0-45.0); pH 7.418 (7.340-7.450)
[2020-07-25 22:11] LABS: PO2 163.1 mmHg (75.0-100.0)
[2020-07-25 22:18] LABS: HEMATOCRIT 37.7 % (42.0-52.0); HEMOGLOBIN 12.6 gm/dL (14.0-18.0); MCH 29.2 pg (26.0-34.0); MCHC 33.4 g/dL (28.0-37.0); MCV 87.4 fL (80.0-100.0); MPV 6.8 fl. (7.2-11.1); NUCLEATED RBCS 0 /100WBC; PLATELET COUNT* 226 thou/uL (150-400); RBC 4.31 mil/uL (4.50-6.00); RDW-CV 16.4 % (10.5-14.5); WBC 10.7 thou/uL (4.0-11.0)
[2020-07-25 22:22] LABS: URINE BILIRUBIN NEGATIVE (Negative); URINE BLOOD NEGATIVE (Negative); URINE CLARITY CLEAR; URINE COLOR YELLOW; URINE GLUCOSE-RANDOM NEGATIVE (Negative); URINE KETONES NEGATIVE (Negative); URINE LEUKOCYTES-REFLEX NEGATIVE (Negative); URINE NITRITE-REFLEX NEGATIVE (Negative); URINE PROTEIN NEGATIVE (Negative); URINE UROBILINOGEN 0.2 E.U./dl (0.2-1.0)
[2020-07-25 22:28] LABS: CALCIUM 8.4 mg/dL (8.5-10.1); CREATININE 1.2 mg/dL (0.6-1.3); POTASSIUM 4.5 mmol/L (3.5-5.1)
[2020-07-25 22:33] LABS: ALBUMIN 3.2 g/dL (3.4-5.0); MAGNESIUM 2.4 mg/dL (1.8-2.4); TOTAL BILIRUBIN 0.2 mg/dL (<0.1-1.0); TOTAL PROTEIN 6.5 g/dL (6.4-8.2)
[2020-07-25 22:47] LABS: INR 0.9; PROTIME 10.1 Seconds (9.20-11.50)
[2020-07-25 22:48] LABS: ABSOLUTE LYMPHOCYTES 0.6 thou/uL (0.8-5.3); ABSOLUTE MONOCYTES 0.3 thou/uL (0.0-1.2); ABSOLUTE NEUTROPHILS 9.7 thou/uL (1.6-8.1); PLATELET ESTIMATE ADEQUATE
[2020-07-26] VITALS (7 sets, daily range): BP systolic 122–153; BP diastolic 69–86
[2020-07-26 10:36] LABS: CALCIUM 8.3 mg/dL (8.5-10.1); CREATININE 1.1 mg/dL (0.6-1.3); POTASSIUM 4.3 mmol/L (3.5-5.1)
[2020-07-26 10:39] LABS: MAGNESIUM 2.2 mg/dL (1.8-2.4); PHOSPHORUS* 3.6 mg/dL (2.5-4.9)
[2020-07-27 07:07] LABS: GLYCOHEMOGLOBIN (HGB A1C) 6.2 % (4.8-5.6)
[2020-07-27 08:15] VITALS: BP 136/78
[2020-07-27 16:37] VITALS: BP 116/65
[2020-07-27 20:23] VITALS: BP 114/70
[2020-07-28 07:30] VITALS: BP 120/80
[2020-07-28 16:11] VITALS: BP 122/78
--- NOTE | 2020-07-28 16:30 | EKG ---
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
[2020-07-28 23:00] VITALS: BP 139/85
[2020-07-29 07:30] VITALS: BP 110/79
[2020-07-29 16:00] VITALS: BP 115/68
[2020-07-29 21:51] VITALS: BP 109/63
[2020-07-30 08:00] VITALS: BP 110/83
[2020-07-30 16:49] VITALS: BP 122/81
[2020-07-31 07:35] VITALS: BP 115/79
[2020-07-31 10:03] VITALS: BP 115/79
--- NOTE | 2020-07-31 14:05 | CON ---
[address] [address] CONSULTATION Name: BRUCE SANDERS Room: [address] ADM IN M.R.#: [id number] Admission: 07/25/20 Attend Phys: Gaurang Morgan Discharge: Date of : 44 Report #: [id number] THIS REPORT FOR: //name// cc: Neil Isabel Steve T. DO ~ DATE OF SERVICE: 07/30/2020 PRIMARY CARE PHYSICIAN: Neil Isabel MD Please note at the time of this dictation, the patient was seen and physically examined by myself. REASON FOR CONSULTATION: Bloating and constipation. HISTORY OF PRESENT ILLNESS: This is a 80-year-old male who was admitted to the Emergency Room on 07/25 with worsening of his shortness of breath over the last 24 hours. He does have a longstanding history of COPD in which he does use oxygen at home p.r.n. The patient states his current symptoms of bloating and constipation had been ongoing for some time. In reviewing our records, it was noted that the patient had a colonoscopy in 10/2018 that showed sigmoid, ascending and cecum diverticulosis and nonbleeding external hemorrhoids. He was instructed to take MiraLax on a daily basis, which he has not been doing. He states every time after he eats, he gets very bloated and it is uncomfortable. He will not take medications until he feels like he gets constipated, which may include Senokot, Colace. He may or may not take MiraLax on a regular basis. He states that when he does all of that then he may get diarrhea. Likely in attempting to explain this to the patient that diarrhea is a result of his constipation, I am unclear if he fully understands this. The patient has also been on esomeprazole at home for long-term in which he has issues with heartburn. Last EGD he had was in 2012 and was completely normal and he has been maintained on these medications as well. Back in 2012, he also had a breath test that was negative for both hydrogen and methane gas at that time. ALLERGIES: No known drug allergies. MEDICATIONS: From home include his esomeprazole, prednisone, Ventolin, his Stiolto inhaler, DuoNeb, Singulair, and Flonase. PAST MEDICAL HISTORY: Includes history of prostate cancer, COPD. PAST SURGICAL HISTORY: Hernia repair, cholecystectomy. FAMILY HISTORY: Negative for any GI or female cancers. SOCIAL HISTORY: Denies any alcohol. He is a former smoker and denies [place] [address] CONSULTATION Name: BRUCE SANDERS Room: [address] IN M.R.#: [id number] Admission: 07/25/20 Attend Phys: Gaurang Morgan Discharge: Date of : 44 Report #: [id number] REVIEW OF SYSTEMS: Twelve-point review of systems is essentially negative except what is mentioned in the HPI. PHYSICAL EXAMINATION: VITAL SIGNS: Temperature 37, pulse 101, respirations 20, blood pressure 110/83. HEART: Slightly irregular rate and rhythm. LUNGS: Diminished and he has got a faint wheeze that was noted. ABDOMEN: Soft, somewhat distended. Positive bowel sounds in all 4 quadrants with no masses or tenderness noted and no discomfort noted. LABORATORY DATA: Hemoglobin is 12.6, white count is 10.7, platelets 226. PT 10.1, INR is 0.6, GFR is 65. He has a CT of the abdomen and pelvis that is pending today. IMPRESSION: 1. Bloating. 2. Constipation, chronic. 3. Hemorrhoids. 4. Small bowel bacterial overgrowth, likely cause of his above symptoms. 5. Chronic obstructive pulmonary disease with home oxygen supplement p.r.n. 6. History of prostate cancer. PLAN: 1. We will start him on Flagyl 500 mg t.i.d. for the next 3 weeks as well as neomycin 500 mg b.i.d. for the next 10 days for his likely small bowel bacterial overgrowth. If the patient should happen to go home prior to the completion of these medications, we will send him home with a prescription for them. 2. The patient is instructed to use his MiraLax 17 grams daily on a regular basis to see where his bowel habits are. If it is too much, then we can back off to a half or 3/4th of a scoop of his MiraLax on a daily basis. 3. We will have to wait and see of the above symptoms, when he needs to be seen in an office visit in about 6 weeks after he is discharged from the hospital. 4. Also after he completes the above dosage, he will need to continue with his probiotic, which he is already taking at home. Thank you for allowing us to participate in this patient's care. Please do not hesitate to call with any questions in regard to this consult. Agree with the above assessment and plan by Svitlana Rhodes. <ELECTRONICALLY SIGNED> By: David Flores MD 07/31/20 1405 1030 1109David Flores MD /raleigh
[2020-07-31 15:33] VITALS: BP 115/79
[2020-07-31] MEDS ORDERED: LEVOFLOXACIN500 MG PO (15:33)
[2020-07-31] MEDS ORDERED: FLOMAX0.4 MG PO (15:33)
[2020-07-31] MEDS ORDERED: PREDNISONE 20 M20 MG PO (15:34)
[2020-07-31] MEDS ORDERED: MIRALAX119 GM PO (15:35)
[2020-07-31] MEDS ORDERED: FLAGYL500 M1 PO (15:37)
== END 2020-07-31 16:09 | disposition home or self-care (01) | DRG 177 ==
LOC: M.ERS 21:24 → M.TBA-ER 23:51 → M.3W 23:51 → M.TBA-ER 07-26 08:29 → M.3W 07-26 14:29
PROVIDERS: Internal Medicine; Personal Emergency Response Attendant; ADMIT Internal Medicine; ATTEND Internal Medicine
DX: J69.0 Pneumonitis due to inhalation of food and vomit (principal); J96.01 Acute respiratory failure with hypoxia; J44.1 Chronic obstructive pulmonary disease with (acute) exacerbation; E44.1 Mild protein-calorie malnutrition; Z68.1 Body mass index [BMI] 19.9 or less, adult; Z20.828 Contact with and (suspected) exposure to other viral communicable diseases; K59.09 Other constipation; K64.9 Unspecified hemorrhoids; I49.49 Other premature depolarization; R73.03 Prediabetes; Z90.49 Acquired absence of other specified parts of digestive tract; Z85.46 Personal history of malignant neoplasm of prostate; Z87.891 Personal history of nicotine dependence